=== PATIENT | female | born 1960 | race Caucasian/White ===

== ENCOUNTER → 2023-03-20 | Outpatient (CLI) | payer OTHER, MEDICARE | END | disposition home or self-care (01) | LOC: RAH 13:25 | PROVIDERS: ATTEND Family Medicine | DX: K44.9 Diaphragmatic hernia without obstruction or gangrene (principal); R91.8 Other nonspecific abnormal finding of lung field | CPT/HCPCS: 71250 ==

== ENCOUNTER 2024-08-08 18:25 | Inpatient (IN) | payer OTHER, MEDICAID ==
[~2024-08-08] VITALS: Ht 160 cm; Wt 84.9 kg
--- NOTE | 2024-08-08 18:50 | NUR ---
TOILETED FOR UA. STATES WAS UNABLE TO PRODUCE URINE.
[2024-08-08 19:09] LABS: BASOPHILS # (AUTO) 0.03 K/uL (0.00-0.20); BASOPHILS % (AUTO) 0.1 % (0.0-5.0); CREATININE 2.2 mg/dL (0.5-1.0); EOSINOPHILS # (AUTO) 0.01 K/uL (0.00-0.70); HEMATOCRIT 48.9 % (36-48); IMMATURE GRANULOCYTE ABSOLUTE 0.16 K/uL (0-1); LYMPHOCYTES # (AUTO) 1.1 K/uL (1.0-4.8); LYMPHOCYTES % (AUTO) 4.7 % (21.0-51.0); MEAN CORPUSCULAR HEMOGLOBIN 30.5 pg (27.0-33.0); MEAN CORPUSCULAR HGB CONC 33.5 g/dL (32.0-36.0); MEAN CORPUSCULAR VOLUME 90.9 fL (79-99); MONOCYTES # (AUTO) 1.8 K/uL (0.1-1.0); MONOCYTES % (AUTO) 7.9 % (3.0-13.0); NEUTROPHILS # (AUTO) 19.5 K/uL (1.8-7.7); NEUTROPHILS % (AUTO) 86.6 % (40.0-77.0); PLATELET COUNT (AUTO) 331 K/uL (130-400); POTASSIUM 3.4 mmol/L (3.5-5.1); RED BLOOD CELL COUNT(AUTO) 5.38 MIL/uL (4.00-5.50); WHITE BLOOD COUNT (AUTO) 22.6 K/uL (4.8-10.8)
[2024-08-08] MEDS: ZOSYN 3.375GM +NS 50ML IV ONE (19:33)
[2024-08-08 19:47] LABS: ALBUMIN 4.9 g/dL (3.5-5.0); BILIRUBIN,DIRECT 0.2 mg/dL (0.0-0.3); MAGNESIUM 2.2 mg/dL (1.80-2.40); TOTAL PROTEIN, SERUM 9.8 g/dL (6.0-8.3)
[2024-08-08] MEDS: 0.9%NACL 1000ML 1,000 ML IV ONE (19:51)
[2024-08-08] MEDS: ondanSETRON 4MG INJ IVP ONE (19:51)
[2024-08-08] MEDS ORDERED: ROSU10TA72 PO (19:57)
[2024-08-08] MEDS ORDERED: METO-391 PO (19:57)
[2024-08-08] MEDS ORDERED: ONDA-104 PO (19:57)
[2024-08-08 20:05] LABS: ABG BASE EXCESS 15.6 mmol/L (-2.0-3.0); ABG HCO3 40.3 mmol/L (21.0-28.0); ABG OXYGEN SATURATION 96.2 % (94.0-98.0); ABG PCO2 48 mmHg (32-45); ABG PH 7.546 (7.350-7.450); DEVICE COMMENT RR RN; PO2, ARTERIAL BG 73.9 mmHg (83.0-108.0); VENT MODE, BG NC (ROOM AIR)
[2024-08-08 20:12] LABS: SARS-CoV-2, RNA, NAAT NEGATIVE SARS CoV-2 (NEGATIVE)
[2024-08-08 20:18] LABS: INFLUENZA TYPE A Negative For Type A (NEGATIVE); INFLUENZA TYPE B Negative For Type B (NEGATIVE)
--- NOTE | 2024-08-08 20:49 | EKG ---
[facility] Test Date: 2024-08-08 Test Time: 20:20:06 Pat Name: RAN PALMA Department: ED Room: 232 Gender: F Concrete Pointer: [id number] : 1960 Requested By: LUNA MEDINA Order Number: [id number] Reading MD: Angel Rodrigues Measurements Intervals [place] Rate: 88 P: 80 [place]: 172 QRS: 28 QRSD: 101 T: 64 QT: 378 QTc: 458 Interpretive Statements Sinus rhythm Probable left atrial enlargement Probable anterolateral infarct, old No previous ECG available for comparison Electronically Signed On 08-12-2024 22:10:54 CDT by Angel Rodrigues Please click the below link to view image of tracing.
--- NOTE | 2024-08-08 21:07 | HMCIMG ---
CT ABDOMEN/PELVIS W/O CONTRAST HISTORY: Sepsis COMPARISON: None TECHNIQUE: Multiple sequential axial images of the abdomen and pelvis were obtained from the dome of the diaphragm through symphysis pubis. Patient was not given contrast through intravenous route. Oral contrast was not given. FINDINGS: No pleural effusion is seen bilaterally. There is no evidence of parenchymal disease or pulmonary nodule of the visualized lower lungs. Degenerative changes of the thoracolumbar spine are present. The heart is not enlarged. There is large hiatal hernia. There is gastric distention. Bilateral renal cortical scarring is seen. There is right renal cyst medially and anteriorly measuring 3 x 2.7 cm. There is small periumbilical hernia with fat content. Postcholecystectomy changes are seen. The liver, spleen, adrenal glands and pancreas are unremarkable. There is no evidence of hydronephrosis bilaterally. No evidence of renal stone is seen. Fecal material is seen in the colon. There are normal size retroperitoneal and mesenteric lymph nodes. No ascites is seen. Atherosclerotic changes are present. Appendix is not well-visualized limiting evaluation. Pelvic sidewalls are symmetric bilaterally. Bladder is moderately distended without wall thickening. IMPRESSION: 1. Large hiatal hernia. Gastric distention. CT was performed with one or more following dose reduction techniques: automated exposure control, adjustment of the mA and kv according to patient's size, or use of a iterative reconstruction technique.
--- NOTE | 2024-08-08 21:08 | ERN ---
General Chief Complaint: Nausea,Vomiting,Diarrhea Stated Complaint: NAUSEA/ VOMITING Time Seen by MD: 18:28 Time Seen by Midlevel: 18:28 Source: patient History of Present Illness Initial Comments Patient is a 64-year-old female with a past medical history of osteoarthritis, hypertension, and hyperlipidemia presenting to the emergency department for evaluation of nausea/vomiting/diarrhea that started two days ago. She called her primary care doctor today who recommended she report to the emergency department for further evaluation. She was also advised to start a bland diet and was given antiemetics with little to no relief. Allergies: Coded Allergies: No Known Drug Allergies (Unverified Allergy, Unknown, 08/08/24) Home Meds Reported Medications Rosuvastatin Calcium (Rosuvastatin Calcium) 10 Mg Tablet, 1 TAB PO HS for 30 Days, #30 TAB 0 Refills 08/08/24 Metoprolol Succinate (Metoprolol Succinate) 50 Mg Tab.er.24h, 1 TAB PO DAILY for 30 Days, #30 TAB 0 Refills 08/08/24 Ondansetron HCl (Ondansetron HCl) 4 Mg Tablet, 1 TAB PO Q6HPRN PRN for nausea/vomiting, #10 TAB 0 Refills 08/08/24 Past Medical History Past Medical History: Arthritis, High Cholesterol, Hypertension Past Surgical History: Cholecystectomy Surgical History Other: KIDNEY STONE ROS Dictation CONSTITUTIONAL: Negative except for HPI HEAD/FACE: Negative except for HPI EENT: Negative except for HPI RESPIRATORY: Negative except for HPI GASTROINTESTINAL/ABDOMINAL: Negative except for HPI GENITOURINARY: Negative except for HPI MUSCULOSKELETAL: Negative except for HPI INTEGUMENTARY: Negative except for HPI NEUROLOGICAL/PSYCH: Negative except for HPI HEMATOLOGIC/LYMPHATIC: Negative except for HPI All Systems Negative, Except as noted above. 13 point review of systems assessed and all negative except for above. Physical Exam Physical Exam Dictation Vital Signs reviewed General Appearance: Alert, oriented x 3, no acute distress, well developed, nourished. Head and Face: non-traumatic. Eyes: PERRL, pink conjunctivas, eyelid no trauma, anterior chamber with arcus senilis. Ears: Pinnas intact and no signs of trauma or erythema ear canals clear and no discharge TM no erythema Nose: No discharge, no bleeding. Oropharynx: Mouth normal, tongue pink, pharynx clear,no erythema, tonsils no exudates, no abscesses noted, mucous membrane moist Neck: Supple, non-tender, no thyromegaly, no masses, no JVD, no bruits Breast:Deferred Chest:No tenderness, no crepitus, no paradoxical movement, no retractions Lungs:Clear, well-ventilated, symmetric, no rales, no wheezing, no rhonchi, no stridor, good breath sounds bilaterally Heart: Tachycardic, regular rhythm, no murmur, no gallops Vascular: no peripheral edema, Abdomen: Soft, positive bowel sounds, nondistended, no guarding, nontender, no rebound, no masses no hepatomegaly, no splenomegaly, no Duggan's sign, no hernias. Rectal: Deferred Genital: Deferred Neurological: Normal speech, motor function intact, sensory function intact Musculoskeletal: Neck nontender, full range of motion, back nontender, full range of motion, Extremities: nontender, full range of motion Skin: Color pink, dry, no turgor, no rash, no lacerations, no abrasions, no contusions. Lymphatic: Deferred Results Laboratory and Microbiology Lab and Micro Result Laboratory Tests Test 08/08/24 18:55 08/08/24 19:20 08/08/24 19:48 08/08/24 20:03 White Blood Count 22.6 K/uL (4.8-10.8) H Red Blood Count 5.38 MIL/uL (4.00-5.50) Hemoglobin 16.4 g/dL (12.0-16.0) H Hematocrit 48.9 % (36-48) H Mean Corpuscular Volume 90.9 fL (79-99) Mean Corpuscular Hemoglobin 30.5 pg (27.0-33.0) Mean Corpuscular Hemoglobin Concent 33.5 g/dL (32.0-36.0) Red Cell Distribution Width 14.0 % (11.0-15.5) Platelet Count 331 K/uL (130-400) Mean Platelet Volume 9.8 fL (7.5-10.5) Immature Granulocyte % (Auto) 0.7 % (0-1) Neutrophils (%) (Auto) 86.6 % (40.0-77.0) H Lymphocytes (%) (Auto) 4.7 % (21.0-51.0) L Monocytes (%) (Auto) 7.9 % (3.0-13.0) Eosinophils (%) (Auto) 0.0 % (0.0-8.0) Basophils (%) (Auto) 0.1 % (0.0-5.0) Neutrophils # (Auto) 19.5 K/uL (1.8-7.7) H Lymphocytes # (Auto) 1.1 K/uL (1.0-4.8) Monocytes # (Auto) 1.8 K/uL (0.1-1.0) H Eosinophils # (Auto) 0.01 K/uL (0.00-0.70) Basophils # (Auto) 0.03 K/uL (0.00-0.20) Absolute Immature Granulocyte (auto 0.16 K/uL (0-1) Nucleated Red Blood Cells 0.0 % (0.0-0.19) White Cell Morphology Comment See comments Sodium Level 142 mmol/L (136-145) Potassium Level 3.4 mmol/L (3.5-5.1) L Chloride Level 88 mmol/L (101-111) *L Carbon Dioxide Level 43 mmol/L (21-32) *H Blood Urea Nitrogen 34 mg/dL (7-18) H Creatinine 2.2 mg/dL (0.5-1.0) H Glomerular Filtration Rate Calc 24 mL/min (>90) Random Glucose 178 mg/dL (70-105) H Total Calcium 10.2 mg/dL (8.5-10.1) H Magnesium Level 2.20 mg/dL (1.80-2.40) Total Bilirubin 1.0 mg/dL (0.2-1.0) Direct Bilirubin 0.2 mg/dL (0.0-0.3) Aspartate Amino Transf (AST/SGOT) 41 U/L (10-37) H Alanine Aminotransferase (ALT/SGPT) 32 U/L (12-78) Alkaline Phosphatase 117 U/L (50-136) Total Creatine Kinase 213 U/L (21-232) Troponin I High Sensitivity 1190 ng/L (4-50) *H Total Protein 9.8 g/dL (6.0-8.3) H Albumin 4.9 g/dL (3.5-5.0) Lipase 25 U/L (16-77) Lactic Acid Level 3.4 mmol/L (0.8-2.5) H Influenza Type A Antigen Negative For Type A Influenza Type B Antigen Negative For Type B SARS-CoV-2, RNA, NAAT NEGATIVE SARS CoV-2 Blood Gas Specimen Type Arterial Arterial Blood pH 7.546 (7.350-7.450) Arterial Blood Partial Pressure CO2 48 mmHg (32-45) H Arterial Blood Partial Pressure O2 73.9 mmHg (83.0-108.0) L Arterial Blood HCO3 40.3 mmol/L (21.0-28.0) H Arterial Blood Oxygen Saturation 96.2 % (94.0-98.0) Arterial Blood Base Excess 15.6 mmol/L (-2.0-3.0) H Blood Gas Temperature 37.0 CELSIUS (35.5-37.0) Blood Gas Flow-by 2.00 L/min (0.00-15.00) Blood Gas Vent Mode NC (ROOM AIR) FiO2 28.0 % Blood Gas Specimen Comment RR RN Test 08/08/24 20:57 Troponin I High Sensitivity 967 ng/L (4-50) *H Labs Reviewed?: Yes MDM MDM: Patient is a 64-year-old female with a past medical history of osteoa rthritis, hypertension, and hyperlipidemia presenting to the emergency department for evaluation of nausea/vomiting/diarrhea that started two days ago. She called her primary care doctor today who recommended she report to the emergency department for further evaluation. She was also advised to start a bland diet and was given antiemetics with little to no relief. On arrival the patient was found to be hypoxic with an O2 saturation in the upper 80s. Patient was put on 2 L of oxygen. Initial vital signs are remarkable for a temperature of 100.0. She is tachycardic with a heart rate of 115 beats per minute. On physical examination patient has some mild wheezing to bilateral lung andre with a productive cough. Abdominal examination is benign. Septic workup was initiated. CBC shows leukocytosis with a white blood cell count of 22.6. There is left shift. Chemistries reveal hypochloremia with a an acute kidney injury. Lactic acid is elevated at 3.4. Initial troponin was elevated at 1190. EKG shows no ST elevations or bundle branch blocks. Repeat troponin trending downward at 967. The patient does not have any active chest pain so we did not start heparin. Patient was started on broad-spectrum antibiotics and will be admitted for further observation and management. Case was discussed with the hospitalist on-call who agrees to admit. Differential diagnosis: Sepsis, dehydration, urinary tract infection, pyelonephritis, gastroenteritis Rationale: Tests considered and ordered secondary to shared decision making include: Previous outside records reviewed: Old ER visits. Risk of complication and/or morbidity or mortality of patient management: None Medications-Per medication reconciliation Need for hospitalization: Patient does meet criteria for hospitalization. Need for emergency major/minor surgery: No There are no social concerns with this patient. Prescription drug management Prescriptions will include symptomatic care Patient's prior external medical records from other ER visits were reviewed by me as indicated. Prior testing and results from previous visits were reviewed. Prior tests were taken into account with medical decision making and resource utilization, independent historian/historians were used to obtain complete medical history. I independently interpreted the test that were performed, results were reviewed by me and considered findings on radiology if ordered. Medical management and examination interpretation discussions were had by me with other qualified healthcare professionals as indicated for the patient's care. ED Course Orders Procedure Category Date Status Time Cbc With Differential LAB 08/08/24 Complete 18:33 Basic Metabolic Panel LAB 08/08/24 Complete 18:33 Hepatic Function Panel LAB 08/08/24 Complete 19:02 Lipase LAB 08/08/24 Complete 19:02 Magnesium LAB 08/08/24 Complete 19:02 Troponin I High LAB 08/08/24 Complete Sensitivity 19:02 Urinalysis Profile LAB 08/08/24 Complete 19:02 Chest 1vw RAD 08/08/24 Resulted 19:02 Creatine Kinase, Total LAB 08/08/24 Complete 19:02 Blood Cult JUDI 08/08/24 In Process 19:02 Zosyn 3.375gm+Ns 50ml PHA 08/08/24 Complete (Zosyn 3.375gm+Ns 19:30 Lactic Acid (Removed) LAB 08/08/24 Complete 19:30 Arterial Blood Gas RT 08/08/24 Transmitted 19:41 Ct Abdomen/Pelvis W/O CT 08/08/24 Resulted Contrast 19:41 Influenza Type A & B, LAB 08/08/24 Complete Rapid 19:44 Covid Rna Naat LAB 08/08/24 Complete 19:44 0.9%Nacl 1000ml (Ns PHA 08/08/24 Complete 1000ml) 20:00 Ondansetron 4mg Inj PHA 5/29/25 Complete (Zofran 4mg Inj) 20:00 12 Lead Ekg Tracing- EKG 08/08/24 Complete Technical 20:03 Arterial Blood Gas LAB 08/08/24 Complete 20:03 Troponin I High LAB 08/08/24 Complete Sensitivity 20:47 Ipratropium/Albuterol PHA 08/08/24 Complete Neb (Duoneb) 21:30 Methylprednisolone PHA 08/08/24 Complete Succ 125mg (Solu-Medr 21:30 Current Medications Medications (Trade) Dose Ordered Sig/Jie Route PRN Reason Start Time Stop Time Status Last Admin Dose Admin Albuterol (DUOneb) 1 UDVIAL ONCE ONCE IH 08/08/24 21:30 08/08/24 21:31 DC 08/08/24 21:37 Methylprednisolone Sodium Succinate (Solu-medROL 125MG) 125 mg ONCE ONCE IVP 08/08/24 21:30 08/08/24 21:31 DC 08/08/24 21:22 Ondansetron HCl (zoFRAN 4MG INJ) 4 mg ONCE ONCE IVP 08/08/24 20:00 08/08/24 20:01 DC 08/08/24 19:51 Piperacillin Sod/ Tazobactam Sod (Zosyn 3.375gm+NS 50ml) 3.375 gm ONCE ONCE IV 08/08/24 19:30 08/08/24 19:31 DC 08/08/24 19:33 Sodium Chloride 1,000 ml @ 0 mls/hr ONCE ONCE IV 08/08/24 20:00 08/08/24 20:01 DC 08/08/24 19:51 Vital Signs Date Time Temp Pulse Resp B/P (MAP) Pulse Ox O2 Delivery O2 Flow Rate FiO2 08/08/24 21:37 88 20 08/08/24 19:15 98.4 105 18 121/65 94 Nasal Cannula* 2 08/08/24 18:52 98.4 114 18 117/78 95 Nasal Cannula* 2 08/08/24 18:28 100.0 115 20 118/78 92 Room Air 0 DX & DISP Disposition: Inpatient Decision to Admit Date: August 08, 2024 Departure Impression: Primary Impression: Sepsis Additional Impressions: DONELL (acute kidney injury), Elevated troponin, Dehydration, Leukocytosis Critical Time: 30 minutes (Total critical care time: Approximately 45 minutesDue to a high probability of clinically significant, life threatening deterioration, the patient required my highest level of preparedness to intervene emergently and I personally spent this critical care time directly and personally managing the patient. This critical care time included obtaining a history; examining the patient; pulse oximetry; ordering and review of studies; arranging urgent treatment with development of a management plan; evaluation of patient's response to treatment; frequent reassessment; and, discussions with other providers.This critical care time was performed to assess and manage the high probability of imminent, life-threatening deterioration that could result in multi-organ failure. It was exclusive of separately billable procedures and treating other patients and teaching time.Please see MDM section and the rest of the note for further information on patient assessment and treatment.) Condition: Stable Referrals: AMBROCIO MARTINEZ MD (PCP) Time of Disposition: 20:59 I have reviewed the case, and I agree with, Diagnosis and Plan I performed the substantive portion of the visit. I have reviewed and personally made and approve the management plan that is documented in the note by myself or the DA. I acknowledge for responsibility for the patient's management plan. LUNA MEDINA August 08, 2024 21:08 SYED BLAKE DO August 09, 2024 02:35
--- NOTE | 2024-08-08 21:11 | HMCIMG ---
CHEST 1VW HISTORY: Shortness of breath COMPARISON: None FINDINGS: A frontal projection of the chest was obtained. Large hiatal hernia is seen. No acute pulmonary infiltrates is seen. The heart is borderline enlarged. Degenerative changes are seen. Mild aortic calcifications are seen. IMPRESSION: 1. No acute pulmonary infiltrate is seen. Large hiatal hernia.
[2024-08-08] MEDS: Solu-medROL 125MG VIAL IVP ONE (21:22)
[2024-08-08 21:37] VITALS: PULSE 88; RESP 20
[2024-08-08] MEDS: IpraTROPium/alBUTERol SULFATE 3 ML SOLUTION IH ONE (21:37)
--- NOTE | 2024-08-08 22:59 | HP ---
[facility] Date of Service: August 08, 2024 Time of Service: 22:36 PCP: Renan Pierson HISTORY OF PRESENT ILLNESS: This is a 64-year-old female past medical history of osteoarthritis, hypertension and hyperlipidemia who presented to the ED for complaints of nausea, vomiting and diarrhea which started two days ago.Patient states she had a hamburger,[place] fries and ice cream from [employer] Monday night and few hours after she started having nausea and vomiting every 2 hrs and 2 episode of diarrhea every day.Patient states she is unable to keep anything down and her diarrhea stopped yesterday however her nausea and vomiting continues and she is vomiting dark colored bile she said.Patient states she had similar problem a year ago she said. Upon arrival to ER vital signs temperature a 100, pulse 115, blood pressure 118/78 saturation 92% room air Seen and examined patient in the ED awake,alert and coherent.Patient continue to be vomiting.Patient denies fever, chills, abdominal pain, chest pain, pa lpitation, cough and shortness of breaths. Latest Vital signs : Temperature 98.4, heart rate 105, blood pressure 121/65 saturation 94% on 2 L nasal cannula. Labs WBC 22.6 with negative left shift of neutrophils 86, hemoglobin 16, hematocrit 48.9 platelet count 331. Sodium 142, potassium 3.4, chloride 88, CO2 43, BUN 34, creatinine 2.2 GFR 24 glucose 178, lactic acid 3.4 Calcium 10 lactic acid 3.4, AST 41. Troponin 1190 to 967. Total protein 9.8. Influenza type a and B negative SARs COVID negative. Chest x-ray result revealed no acute pulmonary infiltrate is seen. Large hiatal hernia. CT abdomen and pelvis without contrast result revealed large hiatal hernia. Gastric distention. While in the ER patient received Solu-Medrol 125 mg IV, albuterol, Zofran 4 mg IV 1 L NS bolus, Zosyn IV. We will admit patient for further medical management. REVIEW OF SYSTEMS CONSTITUTIONAL: Denies fevers, chills, or night sweats. No unintentional weight loss reported. NEUROLOGICAL: Denies headache, amaurosis fugax, motor weakness, sensory deficit, vertigo/spinning sensation, gait abnormalities, or tremors. ENT: No hearing loss, otalgia, otorrhea, rhinitis, rhinorrhea, hoarseness, or sore throat. CARDIOVASCULAR: Denies any exertional angina, dyspnea on exertion, orthopnea, paroxysmal nocturnal dyspnea, palpitations, life-threatening arrhythmias, claudication. PULMONARY: Denies any shortness of breath, cough, phlegm/sputum, hemoptysis, pleuritic chest pain. SLEEP: Denies morning headaches, daytime somnolence or napping. Denies difficulty falling asleep, staying asleep, waking from sleep. Denies knowledge of snoring. GASTROINTESTINAL: Patient complains of ongoing nausea and vomiting Denies any type of dysphagia to either liquids or solids. Denies nausea, vomiting, pyrosis, early satiety, abdominal pain, diarrhea, constipation, or changes in stool consistency or caliber. Denies coffee-ground emesis, hematemesis, hematochezia, or melanotic stools. GENITOURINARY: Denies frequency, urgency, nocturia, hematuria or incontinence (Storage/Irritative symptoms.) Low urinary stream, straining to void, urinary intermittency or hesitancy, splitting of the voiding stream, terminal dribbling. ENDOCRINOLOGIC: Denies polyuria, polydipsia, polyphagia or heat/cold intolerances. HEMATOLOGIC: Denies thrombophilia/previous clots, or coagulopathy/bleeding disorders. ONCOLOGIC: Denies personal history of malignancy. DERMATOLOGIC: Denies rashes or pruritus. PSYCHIATRIC: Denies any suicidal or homicidal ideation. Denies hallucinations. PAST MEDICAL HISTORY: [ Hypertension, osteoarthritis and hyperlipidemia ] PAST SURGICAL HISTORY: [ Kidney stone removal, cholecystectomy ] PAST SOCIAL HISTORY: [Patient lives alone. Patient denies alcohol tobacco and recreational drug use ] FAMILY HISTORY: [ Noncontributory ] Coded Allergies: No Known Drug Allergies (Unverified Allergy, Unknown, 08/08/24) PHYSICAL EXAM GENERAL APPEARANCE: The patient is awake, alert, and oriented, in no acute cardiopulmonary distress. NEUROLOGICAL: Cranial nerves II-XII grossly intact. Motor is 5/5 in bilateral upper and lower extremities proximal to distal. No sensory deficits. HEENT: Face is symmetric. Pupils are equal and reactive. Extraocular movements are intact. NECK: Supple. No JVD. No thyromegaly. No submental, submandibular, pre- /postauricular, occipital or supraclavicular lymphadenopathy. CHEST: Normal chest expansion. No Telemetry. LUNGS: Absence of any rales, rhonchi or any wheezing. CARDIOVASCULAR: Regular. S1 and S2 normal. No appreciable rubs, murmurs or gallops. ABDOMEN: Soft, nontender, and nondistended. There is no rebound, voluntary guarding, or rigidity. : Deferred. No Zuluaga. EXTREMITIES: Non-edematous and not cyanotic. No clubbing. Good capillary refill. SKIN: No skin breakdown. Vital Sign (Last 24 Hours) 08/08/24 08/08/24 19:15 21:37 Temp 98.4 Pulse 88 Resp 20 B/P (MAP) 121/65 Pulse Ox 94 O2 Delivery Nasal Cannula* O2 Flow Rate 2 FiO2 28 LABS: Laboratory: Test 08/08/24 20:57 08/08/24 20:03 08/08/24 19:48 08/08/24 19:20 Range/Units Troponin I High Sensitivity 967 *H 4-50 ng/L Blood Gas Specimen Type Arterial Arterial Blood pH 7.546 H 7.350-7.450 Arterial Blood Partial Pressure CO2 48 H 32-45 mmHg Arterial Blood Partial Pressure O2 73.9 L 83.0-108.0 mmHg Arterial Blood HCO3 40.3 H 21.0-28.0 mmol/L Arterial Blood Oxygen Saturation 96.2 94.0-98.0 % Arterial Blood Base Excess 15.6 H -2.0-3.0 mmol/L Blood Gas Temperature 37.0 35.5-37.0 CELSIUS Blood Gas Flow-by 2.00 0.00-15.00 L/min Blood Gas Vent Mode NC ROOM AIR FiO2 28.0 % Blood Gas Specimen Comment RR RN Influenza Type A Antigen Negative For Type A NEGATIVE Influenza Type B Antigen Negative For Type B NEGATIVE SARS-CoV-2, RNA, NAAT NEGATIVE SARS CoV-2 NEGATIVE Lactic Acid Level 3.4 H 0.8-2.5 mmol/L Test 08/08/24 18:55 Range/Units White Blood Count 22.6 H 4.8-10.8 K/uL Red Blood Count 5.38 4.00-5.50 MIL/uL Hemoglobin 16.4 H 12.0-16.0 g/dL Hematocrit 48.9 H 36-48 % Mean Corpuscular Volume 90.9 79-99 fL Mean Corpuscular Hemoglobin 30.5 27.0-33.0 pg Mean Corpuscular Hemoglobin Concent 33.5 32.0-36.0 g/dL Red Cell Distribution Width 14.0 11.0-15.5 % Platelet Count 331 130-400 K/uL Mean Platelet Volume 9.8 7.5-10.5 fL Immature Granulocyte % (Auto) 0.7 0-1 % Neutrophils (%) (Auto) 86.6 H 40.0-77.0 % Lymphocytes (%) (Auto) 4.7 L 21.0-51.0 % Monocytes (%) (Auto) 7.9 3.0-13.0 % Eosinophils (%) (Auto) 0.0 0.0-8.0 % Basophils (%) (Auto) 0.1 0.0-5.0 % Neutrophils # (Auto) 19.5 H 1.8-7.7 K/uL Lymphocytes # (Auto) 1.1 1.0-4.8 K/uL Monocytes # (Auto) 1.8 H 0.1-1.0 K/uL Eosinophils # (Auto) 0.01 0.00-0.70 K/uL Basophils # (Auto) 0.03 0.00-0.20 K/uL Absolute Immature Granulocyte (auto 0.16 0-1 K/uL Nucleated Red Blood Cells 0.0 0.0-0.19 % White Cell Morphology Comment See comments Sodium Level 142 136-145 mmol/L Potassium Level 3.4 L 3.5-5.1 mmol/L Chloride Level 88 *L 101-111 mmol/L Carbon Dioxide Level 43 *H 21-32 mmol/L Blood Urea Nitrogen 34 H 7-18 mg/dL Creatinine 2.2 H 0.5-1.0 mg/dL Glomerular Filtration Rate Calc 24 >90 mL/min Random Glucose 178 H 70-105 mg/dL Total Calcium 10.2 H 8.5-10.1 mg/dL Magnesium Level 2.20 1.80-2.40 mg/dL Total Bilirubin 1.0 0.2-1.0 mg/dL Direct Bilirubin 0.2 0.0-0.3 mg/dL Aspartate Amino Transf (AST/SGOT) 41 H 10-37 U/L Alanine Aminotransferase (ALT/SGPT) 32 12-78 U/L Alkaline Phosphatase 117 50-136 U/L Total Creatine Kinase 213 21-232 U/L Total Protein 9.8 H 6.0-8.3 g/dL Albumin 4.9 3.5-5.0 g/dL Lipase 25 16-77 U/L DIAGNOSTICS / RADIOLOGY: [ ] ASSESSMENT: Intractable nausea and vomiting POA Severe dehydration POA Acute kidney injury Elevated troponin R/O NSTEMI POA Uncontrolled diabetes POA Metabolic alkalosis POA Hypokalemia POA Sepsis due to UTI POA Acute urinary tract infection POA Large hiatal per CT POA PLAN: We will admit patient in PCCU We will keep patient nothing by mouth We will start NS @ 150 ml / hr x2 bags and re evaluate We will continue on Zosyn IV for empiric coverage We will start on Protonix 40 mg IV daily for GI prophylaxis We will start on Lovenox 80 mg subQ now and evaluate per catherine BLACK We will start Aspirin 81 mg po daily Phenergan 12.5 mg IM x1 dose now We will replace electrolytes as needed per protocol We will start on insulin sliding scale AC & HS with hypoglycemia protocol We will add prn medication for fever,pain,cough , nausea and vomiting We will reconcile home meds once medlist available We will request for urine toxicology We will trend troponin Q6x3 Will request ECG at 0600 am Will obtain echocardiogram Will seek infectious disease consultation Will seek cardiology consultation We will request labs in am Further orders to follow depending on above results Case discussed with attending physician and came up with above treatment and plan of care. ADVANCED CARE PLANNING 1. Which of the following were discussed? Hospice Care - No Therapeutic options - Yes Advance Directives - No Other discussions - 2. Discussed with who? Patient 3. Voluntary nature of this service was explained to the patient? Yes 4. Amount of time spent - __25 5. Reviewed by Physician? (if this service was performed by NPP) Yes ADDENDUM: Incomplete workup on admission the patient has an obvious bowel obstruction with duodenum being compressed at a hiatal hernia causing a gastric outlet obstruction - insert NG tube for decompression - discontinue ID consult as this is not infectious in nature - consult General surgery to evaluate hiatal hernia and resulting obstruction - troponins are up trending, we will follow up with Cardiology ATTENDING PHYSICIAN ATTESTATION: I have reviewed the midlevel's plan. I have independently seen, reviewed the chart and made my own assessment of the patient. See my addendum for updates to the midlevel's medical plan MD FRANKIE Ann ROSEMARIE P [facility] August 08, 2024 22:59 CAROL ANN BOWEN MD August 09, 2024 12:29
[2024-08-08] MEDS ORDERED: ondanSETRON 4MG INJ IV PRN (23:00)
[2024-08-08] MEDS: 0.9%NACL 1000ML 1,000 ML IV SCH (23:15)
[2024-08-08] MEDS: PROMETHAZINE HCL 25 MG/ML 1ML AMPULE IM ONE (23:18)
[2024-08-09] VITALS (15 sets, daily range): BP systolic 143–180; BP diastolic 45–98; PULSE 56–114; RESP 18–19; TEMP 98–99; O2SAT 93–96
[2024-08-09] MEDS: ENOXAPARIN SODIUM 80 MG/0.8 ML SQ ONE (00:02)
[2024-08-09] MEDS: IpraTROPium/alBUTERol SULFATE 3 ML SOLUTION IH SCH (01:48)
[2024-08-09 02:16] LABS: APPEARANCE,URINE CLOUDY (CLEAR); BILIRUBIN,URINE NEGATIVE (NEGATIVE); COLOR,URINE YELLOW (YELLOW); GLUCOSE, URINE (UA) NEGATIVE (NEGATIVE); KETONES,URINE 40 mg/dL (NEGATIVE); LEUKOCYTE ESTERASE ,URINE 250 Leu/uL (NEGATIVE); NITRATE,URINE NEGATIVE (NEGATIVE); OCCULT BLOOD,URINE MODERATE (NEGATIVE); PROTEIN,URINE 100 mg/dL (NEGATIVE); UROBILINOGEN,URINE 0.2 mg/dL (0.2-1.0)
[2024-08-09 02:20] LABS: ADD UA MICROSCOPIC YES
[2024-08-09 02:22] LABS: BACTERIA,URINE RARE /HPF (None Seen); MUCUS,URINE RARE LPF (None Seen); SQUAMOUS EPITHELIAL CELL,UR FEW /HPF (0-2); WBC,URINE 51-100 /HPF (0-1)
[2024-08-09 02:23] LABS: AMPHET/METH SCREEN,URINE NEGATIVE (NEGATIVE); BARBITURATE SCREEN, URINE NEGATIVE (NEGATIVE); BENZODIAZEPINES SCREEN,URINE NEGATIVE (NEGATIVE); CANNABINOID SCREEN,URINE NEGATIVE (NEGATIVE); COCAINE SCREEN,URINE NEGATIVE (NEGATIVE); OPIATE SCREEN,URINE NEGATIVE (NEGATIVE); PHENCYCLIDINE SCREEN,URINE NEGATIVE (NEGATIVE)
[2024-08-09] MEDS: ZOSYN 3.375GM+NS 50ML 50 ML IV SCH (03:53)
--- NOTE | 2024-08-09 05:28 | EKG ---
[facility] Test Date: 2024-08-09 Test Time: 05:28:07 Pat Name: RAN PALMA Department: [facility] Room: 232 1 Gender: F Mink Rancher: [id number] : 1960 Requested By: DALJIT DAVID Order Number: [id number] Reading MD: Angel Rodrigues Measurements Intervals Clements Rate: 98 P: 75 MI: 164 QRS: 34 QRSD: 84 T: 96 QT: 394 QTc: 503 Interpretive Statements Sinus rhythm with premature atrial complexes Inferior infarct , possibly acute ACUTE DE / STEMI Consider right ventricular involvement in acute inferior infarct Compared to ECG 08/08/2024 20:20:06 Atrial premature complex(es) now present Myocardial infarct finding still present Electronically Signed On 08-12-2024 22:11:12 CDT by Angel Rodrigues Please click the below link to view image of tracing.
[2024-08-09 06:08] LABS: BASOPHILS # (AUTO) 0.02 K/uL (0.00-0.20); BASOPHILS % (AUTO) 0.1 % (0.0-5.0); HEMATOCRIT 45.9 % (36-48); IMMATURE GRANULOCYTE ABSOLUTE 0.11 K/uL (0-1); LYMPHOCYTES # (AUTO) 0.8 K/uL (1.0-4.8); LYMPHOCYTES % (AUTO) 3.7 % (21.0-51.0); MEAN CORPUSCULAR HEMOGLOBIN 29.9 pg (27.0-33.0); MEAN CORPUSCULAR HGB CONC 33.1 g/dL (32.0-36.0); MEAN CORPUSCULAR VOLUME 90.2 fL (79-99); MONOCYTES # (AUTO) 0.8 K/uL (0.1-1.0); MONOCYTES % (AUTO) 3.5 % (3.0-13.0); NEUTROPHILS # (AUTO) 19.7 K/uL (1.8-7.7); NEUTROPHILS % (AUTO) 92.2 % (40.0-77.0); PLATELET COUNT (AUTO) 271 K/uL (130-400); RED BLOOD CELL COUNT(AUTO) 5.09 MIL/uL (4.00-5.50); WHITE BLOOD COUNT (AUTO) 21.4 K/uL (4.8-10.8)
[2024-08-09 06:36] LABS: HEMOGLOBIN A1C 5.6 % (4.0-6.0)
[2024-08-09 06:43] LABS: ALBUMIN 3.9 g/dL (3.5-5.0); BILIRUBIN,TOTAL 0.9 mg/dL (0.2-1.0); CREATININE 1.3 mg/dL (0.5-1.0); MAGNESIUM 2.1 mg/dL (1.80-2.40); THYROID STIMULATING HORMONE 0.31 uIU/mL (0.36-3.74); TOTAL PROTEIN, SERUM 8.4 g/dL (6.0-8.3)
[2024-08-09 06:44] LABS: POTASSIUM 2.6 mmol/L (3.5-5.1)
[2024-08-09] MEDS ORDERED: IpraTROPium/alBUTERol SULFATE 3 ML SOLUTION IH PRN (07:00)
[2024-08-09 07:32] LABS: ERYTHROCYTE SEDIMENTATION RATE 13 MM/HR (0-30)
[2024-08-09] MEDS: PoTASSium chloRIDE 10MEQ/100ML 100 ML IV PRN (07:50)
[2024-08-09] MEDS: ASPIRIN 81 MG EC TAB PO SCH (09:00)
[2024-08-09] MEDS ORDERED: ENOXAPARIN SODIUM 30 MG/0.3 ML SQ SCH (09:00)
--- NOTE | 2024-08-09 09:16 | NUR ---
DCP: HOME Pt currently lives alone in her apartment. Pt denies any insecurities with food, assisted, and/or utilities. Pt does not have DME, home health, or provider services. Pt is able to complete ADLs independently. PCP is Dr. Renan Pierson and uses [facility] ([facility]) for any RX needs. At [place] pt will go home and family and friends can assist with transportation. Addendum: 08/09/24 at 0919 by AGUSTIN ESCAMILLA SS Amended: Links added.
[2024-08-09] MEDS: PoTASSium chloRIDE 20MEQ/100ML 100 ML IV PRN (09:26)
[2024-08-09] MEDS: PANTOPrazole 40 MG/VIAL IVP SCH (09:26)
[2024-08-09] MEDS ORDERED: AEC81 PO (11:46)
--- NOTE | 2024-08-09 12:37 | PN ---
[facility] PROGRESS NOTE Date of Service: August 09, 2024 Time of Service: 12:31 SUBJECTIVE: 08/08 patient seen at bedside, no acute events overnight. She continues with nausea, imaging reviewed once again showing a large distended stomach full of fluid and a recognizable hiatal hernia. The pylorus and 1st part of the duodenum are in the thoracic cavity and the duodenum passes through the hiatal hernia into the abdominal cavity. This narrowing along with they distended stomach seems to be causing a gastric outlet obstruction, NG tube will be inserted and patient will be decompressed. General surgery will be consulted for further recommendations. Patient has slow up trend of troponins, she is NPO and can not take normal ACS medications, we will give a rectal suppository of aspirin. Further recommendations per Cardiology REVIEW OF SYSTEMS 12 point ROS negative unless noted in HPI PHYSICAL EXAM GENERAL APPEARANCE: The patient is awake, alert, and oriented, in no acute cardiopulmonary distress. NEUROLOGICAL: Cranial nerves II-XII grossly intact. Motor is 5/5 in bilateral upper and lower extremities proximal to distal. No sensory deficits. HEENT: Face is symmetric. Pupils are equal and reactive. Extraocular movements are intact. NECK: Supple. No JVD. No thyromegaly. No submental, submandibular, pre- /postauricular, occipital or supraclavicular lymphadenopathy. CHEST: Normal chest expansion. No Telemetry. LUNGS: Absence of any rales, rhonchi or any wheezing. CARDIOVASCULAR: Regular. S1 and S2 normal. No appreciable rubs, murmurs or gallops. ABDOMEN: Soft, nontender, and nondistended. There is no rebound, voluntary guarding, or rigidity. : Deferred. No Zuulaga. EXTREMITIES: Non-edematous and not cyanotic. No clubbing. Good capillary refill. SKIN: No skin breakdown. Vital Signs (last 8hr) Date Time Temp Pulse Resp B/P (MAP) Pulse Ox O2 Delivery O2 Flow Rate FiO2 08/09/24 12:00 98.6 56 18 143/45 90 Room Air 08/09/24 11:43 18 N/Cannula Low lpm 2.0 28 08/09/24 07:56 98.8 103 18 148/85 93 Room Air 08/09/24 06:40 96 19 08/09/24 06:39 19 N/Cannula Low lpm 2.0 28 LABS: Laboratory: Test 08/09/24 09:36 08/09/24 05:44 08/09/24 01:50 08/08/24 20:03 Range/Units Lactic Acid Level 1.5 0.8-2.5 mmol/L Troponin I High Sensitivity 1372 *H 4-50 ng/L White Blood Count 21.4 H 4.8-10.8 K/uL Red Blood Count 5.09 4.00-5.50 MIL/uL Hemoglobin 15.2 12.0-16.0 g/dL Hematocrit 45.9 36-48 % Mean Corpuscular Volume 90.2 79-99 fL Mean Corpuscular Hemoglobin 29.9 27.0-33.0 pg Mean Corpuscular Hemoglobin Concent 33.1 32.0-36.0 g/dL Red Cell Distribution Width 14.0 11.0-15.5 % Platelet Count 271 130-400 K/uL Mean Platelet Volume 9.6 7.5-10.5 fL Immature Granulocyte % (Auto) 0.5 0-1 % Neutrophils (%) (Auto) 92.2 H 40.0-77.0 % Lymphocytes (%) (Auto) 3.7 L 21.0-51.0 % Monocytes (%) (Auto) 3.5 3.0-13.0 % Eosinophils (%) (Auto) 0.0 0.0-8.0 % Basophils (%) (Auto) 0.1 0.0-5.0 % Neutrophils # (Auto) 19.7 H 1.8-7.7 K/uL Lymphocytes # (Auto) 0.8 L 1.0-4.8 K/uL Monocytes # (Auto) 0.8 0.1-1.0 K/uL Eosinophils # (Auto) 0.00 0.00-0.70 K/uL Basophils # (Auto) 0.02 0.00-0.20 K/uL Absolute Immature Granulocyte (auto 0.11 0-1 K/uL Nucleated Red Blood Cells 0.0 0.0-0.19 % Erythrocyte Sedimentation Rate 13 0-30 MM/HR Sodium Level 143 136-145 mmol/L Potassium Level 2.6 *L 3.5-5.1 mmol/L Chloride Level 93 L 101-111 mmol/L Carbon Dioxide Level 39 H 21-32 mmol/L Blood Urea Nitrogen 31 H 7-18 mg/dL Creatinine 1.3 H 0.5-1.0 mg/dL Glomerular Filtration Rate Calc 45 >90 mL/min Random Glucose 165 H 70-105 mg/dL Hemoglobin A1c 5.6 4.0-6.0 % Estimated Average Glucose (eAG) 114 70-126 mg/dL Total Calcium 8.7 8.5-10.1 mg/dL Magnesium Level 2.10 1.80-2.40 mg/dL Total Bilirubin 0.9 0.2-1.0 mg/dL Aspartate Amino Transf (AST/SGOT) 42 H 10-37 U/L Alanine Aminotransferase (ALT/SGPT) 28 12-78 U/L Alkaline Phosphatase 97 50-136 U/L Total Protein 8.4 H 6.0-8.3 g/dL Albumin 3.9 # 3.5-5.0 g/dL Procalcitonin 0.07 0.05-0.5 ng/mL Thyroid Stimulating Hormone (TSH) 0.31 L 0.36-3.74 uIU/mL Urine Color YELLOW YELLOW Urine Appearance CLOUDY H CLEAR Urine pH 7.0 5.0-8.0 Urine Specific [place] 1.023 1.001-1.031 Urine Protein 100 H NEGATIVE mg/dL Urine Glucose (UA) NEGATIVE NEGATIVE mg/dL Urine Ketones 40 H NEGATIVE mg/dL Urine Occult Blood MODERATE H NEGATIVE Urine Nitrate NEGATIVE NEGATIVE Urine Bilirubin NEGATIVE NEGATIVE mg/dL Urine Urobilinogen 0.2 0.2-1.0 mg/dL Urine Leukocyte Esterase 250 H NEGATIVE Candis/uL Urine RBC 2-5 H 0-1 /HPF Urine WBC 51-100 H 0-1 /HPF Urine Squamous Epithelial Cells FEW 0-2 /HPF Urine Bacteria RARE None Seen /HPF Urine Hyaline Casts 2-5 H 0-1 /LPF /LPF Urine Opiates Screen NEGATIVE NEGATIVE Urine Barbiturates Screen NEGATIVE NEGATIVE Urine Phencyclidine Screen NEGATIVE NEGATIVE Urine Amphetamines Screen NEGATIVE NEGATIVE Urine Benzodiazepines Screen NEGATIVE NEGATIVE Urine Cocaine Screen NEGATIVE NEGATIVE Urine Marijuana (THC) Screen NEGATIVE NEGATIVE Blood Gas Specimen Type Arterial Arterial Blood pH 7.546 H 7.350-7.450 Arterial Blood Partial Pressure CO2 48 H 32-45 mmHg Arterial Blood Partial Pressure O2 73.9 L 83.0-108.0 mmHg Arterial Blood HCO3 40.3 H 21.0-28.0 mmol/L Arterial Blood Oxygen Saturation 96.2 94.0-98.0 % Arterial Blood Base Excess 15.6 H -2.0-3.0 mmol/L Blood Gas Temperature 37.0 35.5-37.0 CELSIUS Blood Gas Flow-by 2.00 0.00-15.00 L/min Blood Gas Vent Mode NC ROOM AIR FiO2 28.0 % Blood Gas Specimen Comment RR RN Test 08/08/24 19:48 08/08/24 18:55 Range/Units Influenza Type A Antigen Negative For Type A NEGATIVE Influenza Type B Antigen Negative For Type B NEGATIVE SARS-CoV-2, RNA, NAAT NEGATIVE SARS CoV-2 NEGATIVE White Cell Morphology Comment See comments Direct Bilirubin 0.2 0.0-0.3 mg/dL Total Creatine Kinase 213 21-232 U/L Lipase 25 16-77 U/L Current Medications Medications (Trade) Dose Ordered Sig/Jie Route PRN Reason Start Time Stop Time Status Last Admin Dose Admin Albuterol (DUOneb) 1 udvial [id number] IH 08/09/24 02:00 08/09/24 06:43 DC 08/09/24 06:37 1 UDVIAL Albuterol (DUOneb) 1 udvial [id number] PRN IH SHORTNESS OF BREATH 08/09/24 07:00 09/08/24 01:59 Aspirin (Aspirin 81mg Ec Tab) 81 mg DAILY PO 08/09/24 09:00 09/08/24 08:59 Enoxaparin Sodium (Lovenox) 30 mg DAILY SQ 08/09/24 09:00 08/08/24 23:29 DC Magnesium Sulfate 50 ml @ 0 mls/hr PROTOCOL PRN IV OTHER [SEE ORDER COMMENTS] 08/08/24 23:00 09/07/24 22:59 Ondansetron HCl (zoFRAN 4MG INJ) 4 mg Q6H PRN IV NAUSEA/VOMITING 08/08/24 23:00 09/07/24 22:59 Pantoprazole Sodium (PROTonix 40MG INJ) 40 mg DAILY IVP 08/09/24 09:00 09/08/24 08:59 08/09/24 09:26 40 MG Piperacillin Sod/ Tazobactam Sod 50 ml @ 12.5 mls/hr Q8H IV 08/09/24 03:00 08/19/24 02:59 08/09/24 12:27 12.5 MLS/HR Potassium Chloride 100 ml @ 50 mls/hr AD PRN IV POTASSIUM PROTOCOL 08/08/24 23:00 09/07/24 22:59 08/09/24 09:26 50 MLS/HR Potassium Chloride 100 ml @ 100 mls/hr AD PRN IV POTASSIUM PROTOCOL 08/09/24 07:00 09/08/24 06:59 08/09/24 07:50 100 MLS/HR Sodium Chloride 1,000 ml @ 150 mls/hr Q6H40M IV 08/08/24 23:00 09/07/24 22:59 08/09/24 05:46 150 MLS/HR DIAGNOSTICS / RADIOLOGY: [ ] ASSESSMENT: Gastric outlet obstruction/bowel obstruction, [place] Hiatal hernia, POA Intractable nausea and vomiting POA Severe dehydration POA Acute kidney injury Elevated troponin R/O NSTEMI POA Uncontrolled diabetes POA Metabolic alkalosis POA Hypokalemia POA Sepsis due to UTI POA Acute urinary tract infection POA Large hiatal per CT POA PLAN: Continue PCCU Continue nothing by mouth Insert NG tube to intermittent suction Continue NS @ 150 ml / hr x2 bags and re evaluate Continue on Zosyn IV for empiric coverage Continue Protonix 40 mg IV daily for GI prophylaxis Continue Lovenox 80 mg subQ Give 300mg aspirin suppository Continue insulin sliding scale AC & HS with hypoglycemia protocol Echocardiogram pending, will follow up Cardiology consulted, appreciate recommendations General surgery consulted, appreciate recommendations Disposition: Pending improvement in clinical status CAROL ANN BOWEN MD August 09, 2024 12:37
[2024-08-09] MEDS: ASPIRIN 300 MG SUPPOSITORY PR ONE (14:32)
--- NOTE | 2024-08-09 14:46 | CONS ---
CONSULT NOTE: Consulting physician:Dr Bryant Consulting service: General surgery Reason for consultation: Large hiatal hernia History of present illness: This is a 64-year-old female consulted to surgery after presenting to the [facility] with concerns of nausea vomiting and diarrhea that began two days prior. Patient reports associated abdominal discomfort with meals as well. Upon concerns patient presented to the hospital for further evaluation. On presentation imaging performed concern for a large hiatal hernia with gastric distention. NG tube placed and adjustments made to placement in since patient h as had greater than 1200 mL of output. Patient reporting no flatus at this time. Patient again mentioned in chronic history with hiatal hernia but due to no significant complications in the past surgery was never really in consideration. On presentation patient also noted to have elevated troponins. Patient is currently pending cardiology evaluation. Patient NPO with IV fluids and IV antibiotics. WBCs elevated to 21.2. Hemoglobin stable Medical history: Hypertension, osteoarthritis and hyperlipidemia known history of hiatal hernia for greater than one year PAST SURGICAL HISTORY: Kidney stone removal, cholecystectomy PAST SOCIAL HISTORY: Patient lives alone. Patient denies alcohol tobacco and recreational drug use FAMILY HISTORY: Noncontributory Coded Allergies: No Known Drug Allergies (Unverified Allergy, Unknown, 08/08/24) Review of systems: General: No Fever, No Chills, No Night Sweats, No Fatigue, No Malaise, No Appetite, No Other HEENT: No Head Aches, No Visual Changes, No Eye Pain, No Ear Pain, No Dysphasia, No Sinus Congestion, No Post Nasal Drip, No Sore Throat, No Other Pulmonary: No Dyspnea, No Cough, No Pleuritic Chest Pain, No Other Cardiovascular: No: Chest Pain, Palpitations, Orthopnea, Paroxysmal No Dyspnea, Edema, Lt Headedness, Other Gastrointestinal: No: Nausea, Vomiting, Diarrhea, Constipation, Melena, Hematochezia, Other Genitourinary: No Dysuria, No Frequency, No Incontinence, No Hematuria, No Retention, No Other Musculoskeletal: No: other, neck pain, shoulder pain, arm pain, back pain, hand pain, leg pain, foot pain Skin: No Urticaria, No Rash, No Other Neurological: No: Weakness, Numbness, Incoordination, Change in speech, Confusion, Seizures, Other Physical exam: GENERAL APPEARANCE: The patient is awake, alert, and oriented, in no acute cardiopulmonary distress. NEUROLOGICAL: Cranial nerves II-XII grossly intact. Motor is 5/5 in bilateral upper and lower extremities proximal to distal. No sensory deficits. HEENT: Face is symmetric. Pupils are equal and reactive. Extraocular movements are intact. NECK: Supple. No JVD. No thyromegaly. No submental, submandibular, pre-/pos tauricular, occipital or supraclavicular lymphadenopathy. CHEST: Normal chest expansion. No Telemetry. LUNGS: Absence of any rales, rhonchi or any wheezing. CARDIOVASCULAR: Regular. S1 and S2 normal. No appreciable rubs, murmurs or gallops. ABDOMEN: Soft, nontender, and nondistended. There is no rebound, voluntary guarding, or rigidity. : Deferred. No Zuluaga. EXTREMITIES: Non-edematous and not cyanotic. No clubbing. Good capillary refill. SKIN: No skin breakdown. Assessment: This is a 64-year-old female with concerns of a large hiatal hernia and possible small bowel obstruction Plan: This point in time we will continue with conservative management We will await for Cardiology to evaluate for elevated troponins Continue with the NG tube to LIS Patient to remain NPO Surgical team to follow patient closely nursing report any further acute events and we continue to appreciate input from hospitalist team. Thank you KELSIE MONTGOMERY Jr. August 09, 2024 14:46
--- NOTE | 2024-08-09 23:04 | CONS ---
Cardiology Consult Note Attending Vat Packer: Dr. Fly Meza Consulting Physician: Hospitalist Date of Service: 08/09/2024 Reason for Consult: Elevated troponin HPI: This is a 64y/o female with a past medical history of HTN, HLP, and OA who presents with incessant nausea, vomiting, and diarrhea of 3 days in duration. The symptoms began spontaneously, shortly after eating a fast food meal, and over the ensuing 72 hours her symptoms were constant and progressively worsened. The symptoms were present throughout the day, were exacerbated by oral intake, and not alleviated by anything. Associated symptoms include generalized weakness/fatigue. Pertinent negatives include headache, dizziness, syncope, chest pain, chest pressure, palpitations, shortness of breath, PND, orthopnea, abdominal pain, weight gain, lower extremity swelling, diaphoresis, fever, or chills. The patient's progression of symptoms prompted her to seek a higher level of care. While on the inpatient service, laboratory data identified elevated HS troponin I levels. Cardiology was consulted for treatment recommendations. PMH: Listed above PSH: Listed above FH: Noncontributory SH: Denies alcohol, tobacco, or illicit drug use. Allergies: Coded Allergies: No Known Drug Allergies (Unverified Allergy, Unknown, 08/08/24) Review of systems: General: As per the HPI HEENT: Denies changes in vision, earache or sore throat Neck: Denies pain or stiffness Cardio: Denies chest pain, chest pressure, palpitations, or edema. Pulm: Denies SOB, coughing or wheezing GI: As per the HPI MSK: Denies decreased ROM or joint pain. Heme: Denies anemia, easy bruising, or bleeding. Neuro: Denies headache, dizziness, or syncope. Psyche: Denies anxiety, depression, or suicidal ideation. Physical Exam: Vital Signs Date Time Temp Pulse Resp B/P (MAP) Pulse Ox O2 Delivery O2 Flow Rate FiO2 08/09/24 20:05 98.4 110 18 150/82 95 Nasal Cannula 08/09/24 19:00 2.0 28 General: Alert and oriented. NAD. Ill appearing. HEENT: NC/AT. Oral mucosa is moist. NGT noted. Neck: No masses, JVD, or carotid bruits Lungs: NRD. SCM. B/L CTA. No wheezing, rales or rhonchi. Cardio: Tachycardia noted. Normal S1 and S2. +S4. PMI was not displaced. Abdomen: Soft. NT. ND. Normal active bowel sounds x 4 quadrants. Extremities: Diminished throughout. No edema, clubbing, or cyanosis. Neuro: CN II-XII were grossly intact. No focal deficits. Labs: Laboratory Tests Test 08/08/24 23:18 08/09/24 01:50 08/09/24 05:44 08/09/24 09:36 Range/Units Troponin I High Sensitivity 990 *H 964 *H 1372 *H 4-50 ng/L Urine Color YELLOW YELLOW Urine Appearance CLOUDY H CLEAR Urine pH 7.0 5.0-8.0 Urine Specific [place] 1.023 1.001-1.031 Urine Protein 100 H NEGATIVE mg/dL Urine Glucose (UA) NEGATIVE NEGATIVE mg/dL Urine Ketones 40 H NEGATIVE mg/dL Urine Occult Blood MODERATE H NEGATIVE Urine Nitrate NEGATIVE NEGATIVE Urine Bilirubin NEGATIVE NEGATIVE mg/dL Urine Urobilinogen 0.2 0.2-1.0 mg/dL Urine Leukocyte Esterase 250 H NEGATIVE Cnadis/uL Urine RBC 2-5 H 0-1 /HPF Urine WBC 51-100 H 0-1 /HPF Urine Squamous Epithelial Cells FEW 0-2 /HPF Urine Bacteria RARE None Seen /HPF Urine Hyaline Casts 2-5 H 0-1 /LPF /LPF Urine Opiates Screen NEGATIVE NEGATIVE Urine Barbiturates Screen NEGATIVE NEGATIVE Urine Phencyclidine Screen NEGATIVE NEGATIVE Urine Amphetamines Screen NEGATIVE NEGATIVE Urine Benzodiazepines Screen NEGATIVE NEGATIVE Urine Cocaine Screen NEGATIVE NEGATIVE Urine Marijuana (THC) Screen NEGATIVE NEGATIVE White Blood Count 21.4 H 4.8-10.8 K/uL Red Blood Count 5.09 4.00-5.50 MIL/uL Hemoglobin 15.2 12.0-16.0 g/dL Hematocrit 45.9 36-48 % Mean Corpuscular Volume 90.2 79-99 fL Mean Corpuscular Hemoglobin 29.9 27.0-33.0 pg Mean Corpuscular Hemoglobin Concent 33.1 32.0-36.0 g/dL Red Cell Distribution Width 14.0 11.0-15.5 % Platelet Count 271 130-400 K/uL Mean Platelet Volume 9.6 7.5-10.5 fL Immature Granulocyte % (Auto) 0.5 0-1 % Neutrophils (%) (Auto) 92.2 H 40.0-77.0 % Lymphocytes (%) (Auto) 3.7 L 21.0-51.0 % Monocytes (%) (Auto) 3.5 3.0-13.0 % Eosinophils (%) (Auto) 0.0 0.0-8.0 % Basophils (%) (Auto) 0.1 0.0-5.0 % Neutrophils # (Auto) 19.7 H 1.8-7.7 K/uL Lymphocytes # (Auto) 0.8 L 1.0-4.8 K/uL Monocytes # (Auto) 0.8 0.1-1.0 K/uL Eosinophils # (Auto) 0.00 0.00-0.70 K/uL Basophils # (Auto) 0.02 0.00-0.20 K/uL Absolute Immature Granulocyte (auto 0.11 0-1 K/uL Nucleated Red Blood Cells 0.0 0.0-0.19 % Erythrocyte Sedimentation Rate 13 0-30 MM/HR Sodium Level 143 136-145 mmol/L Potassium Level 2.6 *L 3.5-5.1 mmol/L Chloride Level 93 L 101-111 mmol/L Carbon Dioxide Level 39 H 21-32 mmol/L Blood Urea Nitrogen 31 H 7-18 mg/dL Creatinine 1.3 H 0.5-1.0 mg/dL Glomerular Filtration Rate Calc 45 >90 mL/min Random Glucose 165 H 70-105 mg/dL Hemoglobin A1c 5.6 4.0-6.0 % Estimated Average Glucose (eAG) 114 70-126 mg/dL Lactic Acid Level 2.3 1.5 0.8-2.5 mmol/L Total Calcium 8.7 8.5-10.1 mg/dL Magnesium Level 2.10 1.80-2.40 mg/dL Total Bilirubin 0.9 0.2-1.0 mg/dL Aspartate Amino Transf (AST/SGOT) 42 H 10-37 U/L Alanine Aminotransferase (ALT/SGPT) 28 12-78 U/L Alkaline Phosphatase 97 50-136 U/L Total Protein 8.4 H 6.0-8.3 g/dL Albumin 3.9 # 3.5-5.0 g/dL Procalcitonin 0.07 0.05-0.5 ng/mL Thyroid Stimulating Hormone (TSH) 0.31 L 0.36-3.74 uIU/mL Test 08/09/24 15:25 08/09/24 20:28 Range/Units Potassium Level 2.5 *L 3.5-5.1 mmol/L Whole Blood Glucose 104 70-110 MG/DL Assessment: -Incessant nausea, vomiting, and diarrhea -Leukocytosis -Lactic acidosis -Viral gastroenteritis -SBO, currently with NGT to LIS -UTI -Volume depletion -DONELL -Severe electrolyte derangement -Elevated troponin (type II NJ) -HTN -HLP -OA Plan: 1. Elevated troponin (type II NJ) -Stable -Cardiac enzymes-HS troponin I: [id number]>1372 -The elevated troponin is thought to be secondary to a type II NJ (demand ischemia) induced by the gastroenteritis, severe volume depletion, SBO, leukocytosis, lactic acidosis, and UTI, and not secondary to ACS. -Furthermore, the SBO, currently NPO with the NGT in place with a NGT in place, precludes the patient from further ischemic cardiac evaluation at this time. -Instead, we recommend that the patient be started on aspirin 81 mg daily once the patient is cleared for oral intake. -We will obtain a 2D echocardiogram in order to assess the patient's systolic/diastolic function and for any wall motion abnormalities. -We will likely refer the patient for a CCTA or Lexiscan stress test as an outpatient once she recovers from the above mentioned inciting factors. Thank you for this interesting consult and allowing us to participate in the care of your patient. This case was discussed with my Supervising Physician, Dr. Fly Meza, and the above mentioned plan was formulated and agreed upon. -Consult Note written by Junior Lema, MSN, [employer], AGACNP-BC [employer]IOR [employer] August 09, 2024 23:04
[2024-08-10] VITALS (10 sets, daily range): BP systolic 152–181; BP diastolic 69–96; PULSE 78–103; RESP 18–22; TEMP 97.9–99; O2SAT 93–98
[2024-08-10] MEDS: metoCLOPRAmide 10 MG/2 ML VIAL IVP ONE (00:05)
[2024-08-10] MEDS: metoPROLOL tartRATE 1 MG/ML 5ML VIAL IV ONE (00:13)
--- NOTE | 2024-08-10 00:16 | HMCSR ---
APPROVED REPORT EXAM: Two-dimensional and M-mode echocardiogram with Doppler and color Doppler. INDICATION ICD: Elevated troponin 2D Dimensions RVDd3.8 cmLVEF(%)56.3 (>50%)LVED Vol(simp.)85.0 mL IVSd1.1 (0.7-1.1cm)FS(%)29 %LVES Vol(simp.)30.0 mL LVDd3.9 (3.8-5.6cm)LA (2D)2.3 (1.6-4.0cm)LVEF(%, simp.)65 % PWd1.0 (0.7-1.1cm)Ao Root(2D)3.1 (2.0-3.7cm)LA ESV INDEX (BP)17.48 mL/m2 IVSs1.1 cmLVOT diam2.3 (1.8-2.4cm) LVDs2.7 (2.5-4.0cm) PWs1.4 cm Deformation Strain Apical 4-15.7 % Apical 2-20.2 % Apical 3-16.5 % Global Strain-17.5 % M-Mode Dimensions EPSS0.6 cm LA (MM)2.5 (1.6-4.0cm) Ao Root(MM)3.1 (2.0-3.7cm) Aortic Valve AoV Vmax2.2 m/Ana Peak GR20.2 mmHgLVOT Vmax1.4 m/s AoV VTI0.3 mAo Mean GR9.5 mmHgLVOT VTI0.24 m LO (VMAX)2.56 cm2AVA (VTI) 2.9 cm2 Mitral Valve MV E Vmax65.2 cm/sDECEL Fzlv197 ms MV A Vmax85.6 cm/sP 1/2 T31 ms E/A ratio0.8MVA (PHT)7.1 cm2 TDI E/E' Uuefrt14.4E/E' Evriwao79.6 Medial E' Peak V3.75 cm/sLateral E' Peak V4.17 cm/s Pulmonary Valve PV Vmax1.4 m/sPV VTI0.19 mPV Mean GR4.7 mmHg PV Peak GR7.9 mmHgPI End Radha. Justice 188.8 cm/s Tricuspid Valve TR Vmax1.8 m/sRVSP11.6 mmHg TR Peak GR12.7 mmHg Left Ventricle The left ventricle is normal size. No regional wall motion abnormalities noted. Mild concentric left ventricular hypertrophy. Left ventricular systolic function is normal, estimated LVEF 60 to 65%. Inde terminate diastolic function. Right Ventricle The right ventricle is normal size. The right ventricular systolic function is normal. Atria The left atrium size is normal. The right atrium size is normal. Aortic Valve Aortic valve is trileaflet. No aortic regurgitation is present. There is no aortic valvular stenosis. Mitral Valve The mitral valve is normal in structure. Trace mitral regurgitation. There is no mitral valve stenosi s. Tricuspid Valve The tricuspid valve is normal in structure. Trace tricuspid regurgitation. RVSP is 13 mmHg. Pulmonic Valve Pulmonic valve is not well visualized. Great Vessels The aortic root is normal in size. IVC is not visualized. Pericardium There is no pericardial effusion. Other Information Quality : Adequate Conclusion The cardiac chambers are normal in size. Mild concentric left ventricular hypertrophy. No regional wall motion abnormalities noted. Left ventricular systolic function is normal, estimated LVEF 60 to 65%. Indeterminate diastolic function. Trace mitral regurgitation. Trace tricuspid regurgitation. RVSP is 13 mmHg. There is no pericardial effusion.
[2024-08-10 04:08] LABS: BASOPHILS # (AUTO) 0.03 K/uL (0.00-0.20); BASOPHILS % (AUTO) 0.2 % (0.0-5.0); HEMATOCRIT 40.5 % (36-48); IMMATURE GRANULOCYTE ABSOLUTE 0.14 K/uL (0-1); LYMPHOCYTES # (AUTO) 1.2 K/uL (1.0-4.8); LYMPHOCYTES % (AUTO) 5.9 % (21.0-51.0); MEAN CORPUSCULAR HEMOGLOBIN 30.3 pg (27.0-33.0); MEAN CORPUSCULAR HGB CONC 32.8 g/dL (32.0-36.0); MEAN CORPUSCULAR VOLUME 92.3 fL (79-99); MONOCYTES # (AUTO) 2.5 K/uL (0.1-1.0); MONOCYTES % (AUTO) 12.7 % (3.0-13.0); NEUTROPHILS # (AUTO) 15.8 K/uL (1.8-7.7); NEUTROPHILS % (AUTO) 80.5 % (40.0-77.0); PLATELET COUNT (AUTO) 219 K/uL (130-400); RED BLOOD CELL COUNT(AUTO) 4.39 MIL/uL (4.00-5.50); RED CELL DISTRIBUTION WIDTH 14.1 % (11.0-15.5); WHITE BLOOD COUNT (AUTO) 19.6 K/uL (4.8-10.8)
[2024-08-10 04:45] LABS: CREATININE 0.9 mg/dL (0.5-1.0); MAGNESIUM 2.3 mg/dL (1.80-2.40); PHOSPHORUS 2.4 mg/dL (2.5-4.9); POTASSIUM 3.5 mmol/L (3.5-5.1)
[2024-08-10] MEDS: LACTATED RINGERS IV ONE (05:41)
[2024-08-10] MEDS: 0.9%NACL 1000ML 1,000 ML IV SCH (05:41)
[2024-08-10] MEDS: LAbetaLOL 20MG SYG IV PRN (09:58)
--- NOTE | 2024-08-10 10:21 | PN ---
[facility] PROGRESS NOTE Date of Service: August 10, 2024 Time of Service: 10:15 SUBJECTIVE: 08/08 patient seen at bedside, no acute events overnight. She continues with nausea, imaging reviewed once again showing a large distended stomach full of fluid and a recognizable hiatal hernia. The pylorus and 1st part of the duodenum are in the thoracic cavity and the duodenum passes through the hiatal hernia into the abdominal cavity. This narrowing along with they distended stomach seems to be causing a gastric outlet obstruction, NG tube will be inserted and patient will be decompressed. General surgery will be consulted for further recommendations. Patient has slow up trend of troponins, she is NPO and can not take normal ACS medications, we will give a rectal suppository of aspirin. Further recommendations per Cardiology 08/09 patient seen at bedside, no acute events overnight. NG tube output proximally 1600 cc, patient states she is feeling slightly better. She continues on IV fluids, General surgery recommended conservative management we will continue decompression and IV fluids. Further recommendations per General surgery. She has been hypertensive, we will start p.r.n. hydralazine and labetalol as she can not take p.o. medications. WBC improved from 21.4 down to 19.6, potassium improved from 2.5 up to 3.5, remainder of her labs are relatively unremarkable. REVIEW OF SYSTEMS 12 point ROS negative unless noted in HPI PHYSICAL EXAM GENERAL APPEARANCE: The patient is awake, alert, and oriented, in no acute cardiopulmonary distress. NEUROLOGICAL: Cranial nerves II-XII grossly intact. Motor is 5/5 in bilateral upper and lower extremities proximal to distal. No sensory deficits. HEENT: Face is symmetric. Pupils are equal and reactive. Extraocular movements are intact. NECK: Supple. No JVD. No thyromegaly. No submental, submandibular, pre-/p ostauricular, occipital or supraclavicular lymphadenopathy. CHEST: Normal chest expansion. No Telemetry. LUNGS: Absence of any rales, rhonchi or any wheezing. CARDIOVASCULAR: Regular. S1 and S2 normal. No appreciable rubs, murmurs or gallops. ABDOMEN: Soft, nontender, and nondistended. There is no rebound, voluntary guarding, or rigidity. : Deferred. No [place]. EXTREMITIES: Non-edematous and not cyanotic. No clubbing. Good capillary refill. SKIN: No skin breakdown. Vital Signs (last 8hr) Date Time Temp Pulse Resp B/P (MAP) Pulse Ox O2 Delivery O2 Flow Rate FiO2 08/10/24 08:00 99.0 96 19 172/80 93 Nasal Cannula 2.0 08/10/24 06:30 95 18 N/Cannula Low lpm 2.0 28 08/10/24 04:30 98.4 103 18 153/96 95 Nasal Cannula 08/10/24 02:36 99 18 152/70 95 Nasal Cannula 2.0 LABS: Laboratory: Test 08/10/24 05:37 08/10/24 04:01 08/09/24 09:36 08/09/24 05:44 Range/Units Whole Blood Glucose 99 70-110 MG/DL White Blood Count 19.6 H 4.8-10.8 K/uL Red Blood Count 4.39 4.00-5.50 MIL/uL Hemoglobin 13.3 12.0-16.0 g/dL Hematocrit 40.5 36-48 % Mean Corpuscular Volume 92.3 79-99 fL Mean Corpuscular Hemoglobin 30.3 27.0-33.0 pg Mean Corpuscular Hemoglobin Concent 32.8 32.0-36.0 g/dL Red Cell Distribution Width 14.1 11.0-15.5 % Platelet Count 219 130-400 K/uL Mean Platelet Volume 9.7 7.5-10.5 fL Immature Granulocyte % (Auto) 0.7 0-1 % Neutrophils (%) (Auto) 80.5 H 40.0-77.0 % Lymphocytes (%) (Auto) 5.9 L 21.0-51.0 % Monocytes (%) (Auto) 12.7 3.0-13.0 % Eosinophils (%) (Auto) 0.0 0.0-8.0 % Basophils (%) (Auto) 0.2 0.0-5.0 % Neutrophils # (Auto) 15.8 H 1.8-7.7 K/uL Lymphocytes # (Auto) 1.2 1.0-4.8 K/uL Monocytes # (Auto) 2.5 H 0.1-1.0 K/uL Eosinophils # (Auto) 0.00 0.00-0.70 K/uL Basophils # (Auto) 0.03 0.00-0.20 K/uL Absolute Immature Granulocyte (auto 0.14 0-1 K/uL Nucleated Red Blood Cells 0.0 0.0-0.19 % Sodium Level 146 H 136-145 mmol/L Potassium Level 3.5 3.5-5.1 mmol/L Chloride Level 102 101-111 mmol/L Carbon Dioxide Level 35 H 21-32 mmol/L Blood Urea Nitrogen 30 H 7-18 mg/dL Creatinine 0.9 0.5-1.0 mg/dL Glomerular Filtration Rate Calc 71 >90 mL/min Random Glucose 109 H 70-105 mg/dL Total Calcium 8.6 8.5-10.1 mg/dL Phosphorus Level 2.4 L 2.5-4.9 mg/dL Magnesium Level 2.30 1.80-2.40 mg/dL Lactic Acid Level 1.5 0.8-2.5 mmol/L Troponin I High Sensitivity 1372 *H 4-50 ng/L Erythrocyte Sedimentation Rate 13 0-30 MM/HR Hemoglobin A1c 5.6 4.0-6.0 % Estimated Average Glucose (eAG) 114 70-126 mg/dL Total Bilirubin 0.9 0.2-1.0 mg/dL Aspartate Amino Transf (AST/SGOT) 42 H 10-37 U/L Alanine Aminotransferase (ALT/SGPT) 28 12-78 U/L Alkaline Phosphatase 97 50-136 U/L Total Protein 8.4 H 6.0-8.3 g/dL Albumin 3.9 # 3.5-5.0 g/dL Procalcitonin 0.07 0.05-0.5 ng/mL Thyroid Stimulating Hormone (TSH) 0.31 L 0.36-3.74 uIU/mL Test 08/09/24 01:50 08/08/24 20:03 08/08/24 19:48 08/08/24 18:55 Range/Units Urine Color YELLOW YELLOW Urine Appearance CLOUDY H CLEAR Urine pH 7.0 5.0-8.0 Urine Specific [place] 1.023 1.001-1.031 Urine Protein 100 H NEGATIVE mg/dL Urine Glucose (UA) NEGATIVE NEGATIVE mg/dL Urine Ketones 40 H NEGATIVE mg/dL Urine Occult Blood MODERATE H NEGATIVE Urine Nitrate NEGATIVE NEGATIVE Urine Bilirubin NEGATIVE NEGATIVE mg/dL Urine Urobilinogen 0.2 0.2-1.0 mg/dL Urine Leukocyte Esterase 250 H NEGATIVE Candis/uL Urine RBC 2-5 H 0-1 /HPF Urine WBC 51-100 H 0-1 /HPF Urine Squamous Epithelial Cells FEW 0-2 /HPF Urine Bacteria RARE None Seen /HPF Urine Hyaline Casts 2-5 H 0-1 /LPF /LPF Urine Opiates Screen NEGATIVE NEGATIVE Urine Barbiturates Screen NEGATIVE NEGATIVE Urine Phencyclidine Screen NEGATIVE NEGATIVE Urine Amphetamines Screen NEGATIVE NEGATIVE Urine Benzodiazepines Screen NEGATIVE NEGATIVE Urine Cocaine Screen NEGATIVE NEGATIVE Urine Marijuana (THC) Screen NEGATIVE NEGATIVE Blood Gas Specimen Type Arterial Arterial Blood pH 7.546 H 7.350-7.450 Arterial Blood Partial Pressure CO2 48 H 32-45 mmHg Arterial Blood Partial Pressure O2 73.9 L 83.0-108.0 mmHg Arterial Blood HCO3 40.3 H 21.0-28.0 mmol/L Arterial Blood Oxygen Saturation 96.2 94.0-98.0 % Arterial Blood Base Excess 15.6 H -2.0-3.0 mmol/L Blood Gas Temperature 37.0 35.5-37.0 CELSIUS Blood Gas Flow-by 2.00 0.00-15.00 L/min Blood Gas Vent Mode NC ROOM AIR FiO2 28.0 % Blood Gas Specimen Comment RR RN Influenza Type A Antigen Negative For Type A NEGATIVE Influenza Type B Antigen Negative For Type B NEGATIVE SARS-CoV-2, RNA, NAAT NEGATIVE SARS CoV-2 NEGATIVE White Cell Morphology Comment See comments Direct Bilirubin 0.2 0.0-0.3 mg/dL Total Creatine Kinase 213 21-232 U/L Lipase 25 16-77 U/L Current Medications Medications (Trade) Dose Ordered Sig/Jie Route PRN Reason Start Time Stop Time Status Last Admin Dose Admin Albuterol (DUOneb) 1 udvial [id number] IH 08/09/24 02:00 08/09/24 06:43 DC 08/09/24 06:37 1 UDVIAL Albuterol (DUOneb) 1 udvial [id number] PRN IH SHORTNESS OF BREATH 08/09/24 07:00 09/08/24 01:59 Aspirin (Aspirin 81mg Ec Tab) 81 mg DAILY PO 08/09/24 09:00 09/08/24 08:59 Enoxaparin Sodium (Lovenox) 30 mg DAILY SQ 08/09/24 09:00 08/08/24 23:29 DC Labetalol HCl (TRANdate 20MG SYG) 10 mg Q6H PRN IV IF SBP GREATER THAN 160 08/10/24 09:00 09/09/24 08:59 Magnesium Sulfate 50 ml @ 0 mls/hr PROTOCOL PRN IV OTHER [SEE ORDER COMMENTS] 08/08/24 23:00 09/07/24 22:59 Ondansetron HCl (zoFRAN 4MG INJ) 4 mg Q6H PRN IV NAUSEA/VOMITING 08/08/24 23:00 09/07/24 22:59 Pantoprazole Sodium (PROTonix 40MG INJ) 40 mg DAILY IVP 08/09/24 09:00 09/08/24 08:59 08/09/24 09:26 40 MG Piperacillin Sod/ Tazobactam Sod 50 ml @ 12.5 mls/hr Q8H IV 08/09/24 03:00 08/19/24 02:59 08/10/24 02:32 12.5 MLS/HR Potassium Chloride 100 ml @ 50 mls/hr AD PRN IV POTASSIUM PROTOCOL 08/08/24 23:00 09/07/24 22:59 08/10/24 05:03 50 MLS/HR Potassium Chloride 100 ml @ 100 mls/hr AD PRN IV POTASSIUM PROTOCOL 08/09/24 07:00 09/08/24 06:59 08/09/24 23:41 100 MLS/HR Sodium Chloride 1,000 ml @ 125 mls/hr Q8H IV 08/10/24 06:00 09/09/24 05:59 08/10/24 05:41 125 MLS/HR Sodium Chloride 1,000 ml @ 150 mls/hr Q6H40M IV 08/08/24 23:00 08/10/24 05:40 DC 08/09/24 05:46 150 MLS/HR DIAGNOSTICS / RADIOLOGY: [ ] ASSESSMENT: Gastric outlet obstruction/bowel obstruction, [place] Hiatal hernia, POA Intractable nausea and vomiting POA Severe dehydration POA Acute kidney injury Elevated troponin R/O NSTEMI POA Uncontrolled diabetes POA Metabolic alkalosis POA Hypokalemia POA Sepsis due to UTI POA Acute urinary tract infection POA Large hiatal per CT POA PLAN: Continue PCCU Continue nothing by mouth Insert NG tube to intermittent suction Continue NS @ 150 ml / hr x2 bags and re evaluate Continue on Zosyn IV for empiric coverage Continue Protonix 40 mg IV daily for GI prophylaxis Continue Lovenox 80 mg subQ Give 300mg aspirin suppository Continue insulin sliding scale AC & HS with hypoglycemia protocol Cardiology consulted, appreciate recommendations General surgery consulted, appreciate recommendations Disposition: Pending improvement in clinical status CAROL ANN BOWEN MD August 10, 2024 10:21
--- NOTE | 2024-08-10 19:48 | PN ---
GENERAL SURGERY PROGRESS NOTE Date/Time Patient Seen: [ ] Problem List: Large hiatal hernia, nausea or vomiting Interval History: Patient with no nausea or vomiting today. NG tube output only 600 today. Passing gas. Current Medications Medications (Trade) Dose Ordered Sig/Jie Route Start Time Stop Time Status Last Admin Dose Admin Albuterol (DUOneb) 1 udvial [id number] IH 08/09/24 02:00 08/09/24 06:43 DC 08/09/24 06:37 1 UDVIAL Aspirin (Aspirin 81mg Ec Tab) 81 mg DAILY PO 08/09/24 09:00 09/08/24 08:59 Enoxaparin Sodium (Lovenox) 30 mg DAILY SQ 08/09/24 09:00 08/08/24 23:29 DC Pantoprazole Sodium (PROTonix 40MG INJ) 40 mg DAILY IVP 08/09/24 09:00 09/08/24 08:59 08/10/24 11:56 40 MG Piperacillin Sod/ Tazobactam Sod 50 ml @ 12.5 mls/hr Q8H IV 08/09/24 03:00 08/19/24 02:59 08/10/24 11:56 12.5 MLS/HR Sodium Chloride 1,000 ml @ 125 mls/hr Q8H IV 08/10/24 06:00 09/09/24 05:59 08/10/24 15:04 125 MLS/HR Sodium Chloride 1,000 ml @ 150 mls/hr Q6H40M IV 08/08/24 23:00 08/10/24 05:40 DC 08/09/24 05:46 150 MLS/HR Physical Examination: GENERAL: [No acute distress.] HEAD: normocephalic LUNGS: [Clear breath sounds bilaterally. CVRR ABD: [Bowel sounds normal, soft, nontender, SKIN: [No rashes or lesions noted.] NEURO: [Awake, alert, and oriented x3.\ Vital Signs (last 8hr) Date Time Temp Pulse Resp B/P (MAP) Pulse Ox O2 Delivery O2 Flow Rate FiO2 08/10/24 18:19 88 18 N/Cannula Low lpm 1.0 24 08/10/24 17:32 80 163/69 08/10/24 16:00 97.9 80 19 163/69 94 Nasal Cannula 1.0 08/10/24 14:32 158/74 08/10/24 13:48 78 181/71 08/10/24 13:47 181/71 08/10/24 12:00 98.4 84 19 160/80 96 Room Air 2.0 Laboratory: [ ] Hematology Labs: Test 08/10/24 04:01 08/09/24 05:44 Range/Units White Blood Count 19.6 H 4.8-10.8 K/uL Red Blood Count 4.39 4.00-5.50 MIL/uL Hemoglobin 13.3 12.0-16.0 g/dL Hematocrit 40.5 36-48 % Mean Corpuscular Volume 92.3 79-99 fL Mean Corpuscular Hemoglobin 30.3 27.0-33.0 pg Mean Corpuscular Hemoglobin Concent 32.8 32.0-36.0 g/dL Red Cell Distribution Width 14.1 11.0-15.5 % Platelet Count 219 130-400 K/uL Mean Platelet Volume 9.7 7.5-10.5 fL Immature Granulocyte % (Auto) 0.7 0-1 % Neutrophils (%) (Auto) 80.5 H 40.0-77.0 % Lymphocytes (%) (Auto) 5.9 L 21.0-51.0 % Monocytes (%) (Auto) 12.7 3.0-13.0 % Eosinophils (%) (Auto) 0.0 0.0-8.0 % Basophils (%) (Auto) 0.2 0.0-5.0 % Neutrophils # (Auto) 15.8 H 1.8-7.7 K/uL Lymphocytes # (Auto) 1.2 1.0-4.8 K/uL Monocytes # (Auto) 2.5 H 0.1-1.0 K/uL Eosinophils # (Auto) 0.00 0.00-0.70 K/uL Basophils # (Auto) 0.03 0.00-0.20 K/uL Absolute Immature Granulocyte (auto 0.14 0-1 K/uL Nucleated Red Blood Cells 0.0 0.0-0.19 % Erythrocyte Sedimentation Rate 13 0-30 MM/HR Chemistry Labs: Test 08/10/24 11:10 08/10/24 05:37 08/10/24 04:01 08/09/24 09:36 Range/Units Potassium Level 3.5 3.5-5.1 mmol/L Whole Blood Glucose 99 70-110 MG/DL Sodium Level 146 H 136-145 mmol/L Chloride Level 102 101-111 mmol/L Carbon Dioxide Level 35 H 21-32 mmol/L Blood Urea Nitrogen 30 H 7-18 mg/dL Creatinine 0.9 0.5-1.0 mg/dL Glomerular Filtration Rate Calc 71 >90 mL/min Random Glucose 109 H 70-105 mg/dL Total Calcium 8.6 8.5-10.1 mg/dL Phosphorus Level 2.4 L 2.5-4.9 mg/dL Magnesium Level 2.30 1.80-2.40 mg/dL Lactic Acid Level 1.5 0.8-2.5 mmol/L Troponin I High Sensitivity 1372 *H 4-50 ng/L Test 08/09/24 05:44 Range/Units Hemoglobin A1c 5.6 4.0-6.0 % Estimated Average Glucose (eAG) 114 70-126 mg/dL Total Bilirubin 0.9 0.2-1.0 mg/dL Aspartate Amino Transf (AST/SGOT) 42 H 10-37 U/L Alanine Aminotransferase (ALT/SGPT) 28 12-78 U/L Alkaline Phosphatase 97 50-136 U/L Total Protein 8.4 H 6.0-8.3 g/dL Albumin 3.9 # 3.5-5.0 g/dL Procalcitonin 0.07 0.05-0.5 ng/mL Thyroid Stimulating Hormone (TSH) 0.31 L 0.36-3.74 uIU/mL Diagnostics / Radiology: [Copy/Paste Echos/Imaging Report here] Impression and Plan: Patient with a large hiatal hernia. Seems to be improving. We will try to do a CT scan with oral contrast tomorrow and see how she tolerates it make sure that the contrast goes all the way through. If patient has recurrent symptoms we might need a to proceed to surgery. Ideally I discussed with the patient we do not want to repair this in the acute setting and if she were able to tolerate a diet and be discharged would be better and have a deferred repair of her hiatal hernia later date. We will await results of the CT scan for tomorrow. KEYONNA ESPINO MD August 10, 2024 19:48
[2024-08-11] VITALS (9 sets, daily range): BP systolic 136–180; BP diastolic 62–95; PULSE 73–93; RESP 16–22; TEMP 97.6–99.7; O2SAT 94–96
[2024-08-11 04:14] LABS: BASOPHILS # (AUTO) 0.02 K/uL (0.00-0.20); BASOPHILS % (AUTO) 0.2 % (0.0-5.0); IMMATURE GRANULOCYTE ABSOLUTE 0.09 K/uL (0-1); LYMPHOCYTES # (AUTO) 1.4 K/uL (1.0-4.8); MEAN CORPUSCULAR HEMOGLOBIN 30.5 pg (27.0-33.0); MEAN CORPUSCULAR HGB CONC 32.5 g/dL (32.0-36.0); MONOCYTES # (AUTO) 1.4 K/uL (0.1-1.0); MONOCYTES % (AUTO) 11.9 % (3.0-13.0); NEUTROPHILS # (AUTO) 8.9 K/uL (1.8-7.7); NEUTROPHILS % (AUTO) 75.1 % (40.0-77.0); PLATELET COUNT (AUTO) 204 K/uL (130-400); RED BLOOD CELL COUNT(AUTO) 3.83 MIL/uL (4.00-5.50); RED CELL DISTRIBUTION WIDTH 13.9 % (11.0-15.5); WHITE BLOOD COUNT (AUTO) 11.8 K/uL (4.8-10.8)
[2024-08-11 04:37] LABS: CREATININE 0.6 mg/dL (0.5-1.0); POTASSIUM 4.2 mmol/L (3.5-5.1)
--- NOTE | 2024-08-11 10:37 | PN ---
[facility] PROGRESS NOTE Date of Service: Aug 11, 2024 Time of Service: 10:24 SUBJECTIVE: 08/09 patient seen at bedside, no acute events overnight. She continues with nausea, imaging reviewed once again showing a large distended stomach full of fluid and a recognizable hiatal hernia. The pylorus and 1st part of the duodenum are in the thoracic cavity and the duodenum passes through the hiatal hernia into the abdominal cavity. This narrowing along with they distended stomach seems to be causing a gastric outlet obstruction, NG tube will be inserted and patient will be decompressed. General surgery will be consulted for further recommendations. Patient has slow up trend of troponins, she is NPO and can not take normal ACS medications, we will give a rectal suppository of aspirin. Further recommendations per Cardiology 08/10 patient seen at bedside, no acute events overnight. NG tube output proximally 1600 cc, patient states she is feeling slightly better. She continues on IV fluids, General surgery recommended conservative management we will continue decompression and IV fluids. Further recommendations per General surgery. She has been hypertensive, we will start p.r.n. hydralazine and labetalol as she can not take p.o. medications. WBC improved from 21.4 down to 19.6, potassium improved from 2.5 up to 3.5, remainder of her labs are relatively unremarkable. 08/11 patient seen at bedside, no acute events overnight. General surgery recommending CT of the abdomen with oral contrast today to see if contrast goes through. NG tube will be clamped prior to the procedure so that contrast as a chance to go through. REVIEW OF SYSTEMS 12 point ROS negative unless noted in HPI PHYSICAL EXAM GENERAL APPEARANCE: The patient is awake, alert, and oriented, in no acute cardiopulmonary distress. NEUROLOGICAL: Cranial nerves II-XII grossly intact. Motor is 5/5 in bilateral upper and lower extremities proximal to distal. No sensory deficits. HEENT: Face is symmetric. Pupils are equal and reactive. Extraocular movements are intact. NECK: Supple. No JVD. No thyromegaly. No submental, submandibular, pre-/pos tauricular, occipital or supraclavicular lymphadenopathy. CHEST: Normal chest expansion. No Telemetry. LUNGS: Absence of any rales, rhonchi or any wheezing. CARDIOVASCULAR: Regular. S1 and S2 normal. No appreciable rubs, murmurs or gallops. ABDOMEN: Soft, nontender, and nondistended. There is no rebound, voluntary guarding, or rigidity. : Deferred. No Zuluaga. EXTREMITIES: Non-edematous and not cyanotic. No clubbing. Good capillary refill. SKIN: No skin breakdown. Vital Signs (last 8hr) Date Time Temp Pulse Resp B/P (MAP) Pulse Ox O2 Delivery O2 Flow Rate FiO2 08/11/24 08:14 97.5 73 18 136/74 94 Room Air 08/11/24 07:26 74 18 N/A Room Air 21 08/11/24 03:46 99.0 80 22 141/62 95 Room Air LABS: Laboratory: Test 08/11/24 04:59 08/11/24 03:40 08/10/24 04:01 Range/Units Whole Blood Glucose 72 70-110 MG/DL White Blood Count 11.8 #H 4.8-10.8 K/uL Red Blood Count 3.83 L 4.00-5.50 MIL/uL Hemoglobin 11.7 L 12.0-16.0 g/dL Hematocrit 36.0 36-48 % Mean Corpuscular Volume 94.0 79-99 fL Mean Corpuscular Hemoglobin 30.5 27.0-33.0 pg Mean Corpuscular Hemoglobin Concent 32.5 32.0-36.0 g/dL Red Cell Distribution Width 13.9 11.0-15.5 % Platelet Count 204 130-400 K/uL Mean Platelet Volume 10.1 7.5-10.5 fL Immature Granulocyte % (Auto) 0.8 0-1 % Neutrophils (%) (Auto) 75.1 40.0-77.0 % Lymphocytes (%) (Auto) 12.0 L 21.0-51.0 % Monocytes (%) (Auto) 11.9 3.0-13.0 % Eosinophils (%) (Auto) 0.0 0.0-8.0 % Basophils (%) (Auto) 0.2 0.0-5.0 % Neutrophils # (Auto) 8.9 H 1.8-7.7 K/uL Lymphocytes # (Auto) 1.4 1.0-4.8 K/uL Monocytes # (Auto) 1.4 H 0.1-1.0 K/uL Eosinophils # (Auto) 0.00 0.00-0.70 K/uL Basophils # (Auto) 0.02 0.00-0.20 K/uL Absolute Immature Granulocyte (auto 0.09 0-1 K/uL Nucleated Red Blood Cells 0.0 0.0-0.19 % Sodium Level 145 136-145 mmol/L Potassium Level 4.2 3.5-5.1 mmol/L Chloride Level 106 101-111 mmol/L Carbon Dioxide Level 31 21-32 mmol/L Blood Urea Nitrogen 19 H 7-18 mg/dL Creatinine 0.6 0.5-1.0 mg/dL Glomerular Filtration Rate Calc 99 >90 mL/min Random Glucose 74 70-105 mg/dL Total Calcium 8.4 L 8.5-10.1 mg/dL Phosphorus Level 2.4 L 2.5-4.9 mg/dL Magnesium Level 2.30 1.80-2.40 mg/dL Current Medications Medications (Trade) Dose Ordered Sig/Jie Route PRN Reason Start Time Stop Time Status Last Admin Dose Admin Albuterol (DUOneb) 1 udvial [id number] IH 08/09/24 02:00 08/09/24 06:43 DC 08/09/24 06:37 1 UDVIAL Albuterol (DUOneb) 1 udvial [id number] PRN IH SHORTNESS OF BREATH 08/09/24 07:00 09/08/24 01:59 Aspirin (Aspirin 81mg Ec Tab) 81 mg DAILY PO 08/09/24 09:00 09/08/24 08:59 Enoxaparin Sodium (Lovenox) 30 mg DAILY SQ 08/09/24 09:00 08/08/24 23:29 DC Labetalol HCl (TRANdate 20MG SYG) 10 mg Q6H PRN IV IF SBP GREATER THAN 160 08/10/24 09:00 08/10/24 19:04 DC 08/10/24 17:32 10 MG Magnesium Sulfate 50 ml @ 0 mls/hr PROTOCOL PRN IV OTHER [SEE ORDER COMMENTS] 08/08/24 23:00 09/07/24 22:59 Metoprolol Tartrate (loprESSOR) 5 mg Q4H PRN IV ADMINISTER FOR SBP > 160 08/10/24 19:30 09/09/24 19:29 Ondansetron HCl (zoFRAN 4MG INJ) 4 mg Q6H PRN IV NAUSEA/VOMITING 08/08/24 23:00 09/07/24 22:59 Pantoprazole Sodium (PROTonix 40MG INJ) 40 mg DAILY IVP 08/09/24 09:00 09/08/24 08:59 08/11/24 09:01 40 MG Piperacillin Sod/ Tazobactam Sod 50 ml @ 12.5 mls/hr Q8H IV 08/09/24 03:00 08/19/24 02:59 08/11/24 03:56 12.5 MLS/HR Potassium Chloride 100 ml @ 50 mls/hr AD PRN IV POTASSIUM PROTOCOL 08/08/24 23:00 09/07/24 22:59 08/10/24 21:12 50 MLS/HR Potassium Chloride 100 ml @ 100 mls/hr AD PRN IV POTASSIUM PROTOCOL 08/09/24 07:00 09/08/24 06:59 08/09/24 23:41 100 MLS/HR Sodium Chloride 1,000 ml @ 125 mls/hr Q8H IV 08/10/24 06:00 09/09/24 05:59 08/10/24 21:20 125 MLS/HR Sodium Chloride 1,000 ml @ 150 mls/hr Q6H40M IV 08/08/24 23:00 08/10/24 05:40 DC 08/09/24 05:46 150 MLS/HR DIAGNOSTICS / RADIOLOGY: [ ] ASSESSMENT: Gastric outlet obstruction/bowel obstruction, [place] Hiatal hernia, POA Intractable nausea and vomiting POA Severe dehydration POA Acute kidney injury Elevated troponin R/O NSTEMI POA Uncontrolled diabetes POA Metabolic alkalosis POA Hypokalemia POA Sepsis due to UTI POA Acute urinary tract infection POA Large hiatal per CT POA PLAN: Continue PCCU Continue nothing by mouth Insert NG tube to intermittent suction Continue NS @ 150 ml / hr x2 bags and re evaluate Continue on Zosyn IV for empiric coverage Continue Protonix 40 mg IV daily for GI prophylaxis Continue Lovenox 80 mg subQ Give 300mg aspirin suppository CT Abdomen with oral contrast today Continue insulin sliding scale AC & HS with hypoglycemia protocol Cardiology consulted, appreciate recommendations General surgery consulted, appreciate recommendations Disposition: Pending CT with oral contrast, General surgery recommendations CAROL ANN BOWEN MD Aug 11, 2024 10:37
[2024-08-11] MEDS ORDERED: DIATR MEGLU/DIATRIZOATE SODIUM 30 ML BOTTLE ONE (11:06)
--- NOTE | 2024-08-11 14:54 | HMCIMG ---
CT CHEST W/O CONTRAST HISTORY: Hiatal hernia COMPARISON: 03/20/2003 TECHNIQUE: Multiple sequential axial images of the chest were obtained from the thoracic inlet through upper abdomen. Patient was not given contrast through intravenous route. FINDINGS: Bipartite hernia is seen. There are small bilateral pleural effusions. No pericardial effusion is seen. There are mild interstitial fibrosis. Contrast is seen in the small bowel loops. Nasogastric tube is seen with distal tip in the stomach. There is no evidence of pneumothorax. There are normal size mediastinal and hilar lymph nodes. The heart is not enlarged. Degenerative changes of the thoracolumbar spine are present. There is no evidence of adrenal nodule. IMPRESSION: 1. Large hiatal hernia. Small bilateral pleural effusions. CT was performed with one or more following dose reduction techniques: automated exposure control, adjustment of the mA and kv according to patient's size, or use of a iterative reconstruction technique.
--- NOTE | 2024-08-11 14:56 | HMCIMG ---
CT ABDOMEN/PELVIS W/O CONTRAST HISTORY: Hyperlipidemia COMPARISON: 08/08/2009 TECHNIQUE: Multiple sequential axial images of the abdomen and pelvis were obtained from the dome of the diaphragm through symphysis pubis. Patient was not given contrast through intravenous route. Oral contrast was given. FINDINGS: Small bilateral pleural effusions are seen. Left-sided seen. Nasogastric tube is seen with distal tip in the hiatal hernia/stomach. There is no evidence of parenchymal disease or pulmonary nodule of the visualized lower lungs. Degenerative changes of the thoracolumbar spine are present. The heart is not enlarged. Small periumbilical hernia is suspected. No bowel obstruction. Contrast is seen in the rectum. Uterus is prominent related to fibroid uterus. The liver, spleen, adrenal glands and pancreas are unremarkable. There is no evidence of hydronephrosis bilaterally. No evidence of renal stone is seen. Fecal material is seen in the colon. There are normal size retroperitoneal and mesenteric lymph nodes. No ascites is seen. Appendix is not well-visualized. Pelvic sidewalls are symmetric bilaterally. Bladder is well distended without wall thickening. IMPRESSION: 1. Hiatal hernia. Small bilateral pleural effusions. Small periumbilical hernia with fat content. No bowel obstruction. CT was performed with one or more following dose reduction techniques: automated exposure control, adjustment of the mA and kv according to patient's size, or use of a iterative reconstruction technique.
--- NOTE | 2024-08-11 16:10 | NUR ---
NGT REMOVED, TOLERATED WELL. DR. ESPINO AT BEDSIDE.
--- NOTE | 2024-08-11 16:12 | PN ---
Patient with large hiatal hernia. Today has only had 50 mL out of the NG tube. Had the CT with oral contrast and tolerated the oral contrast fairly well had very minimal nausea. Had a large bowel movement just now. Physical exam patient alert and oriented x3 no respiratory distress cardiovascular regular rhythm abdomen is soft not distended not tender NG tube with minimal to no output assessment and plan remove NG tube and start patient on a full liquid diet. Advance diet slowly as tolerated to a soft GI. If tolerated okay to discharge home. And we will plan for an outpatient hiatal hernia repair. Discussed this with the patient and she agrees to proceed. Vitals/Labs Vital Signs Date Time Temp Pulse Resp B/P (MAP) Pulse Ox O2 Delivery O2 Flow Rate FiO2 08/11/24 11:56 98.8 80 18 180/95 95 Room Air 08/11/24 07:26 21 08/10/24 20:00 0 Laboratory Tests 08/11/24 03:40 Medications Current Medications Piperacillin Sod/ Tazobactam Sod 3.375 gm ONCE ONCE IV Last administered on 08/08/24at 19:33; Start 08/08/24 at 19:30; Stop 08/08/24 at 19:31; Status DC Sodium Chloride 1,000 ml @ 0 mls/hr ONCE ONCE IV Last administered on 08/08/24at 19:51; Start 08/08/24 at 20:00; Stop 08/08/24 at 20:01; Status DC Ondansetron HCl 4 mg ONCE ONCE IVP Last administered on 08/08/24at 19:51; Start 08/08/24 at 20:00; Stop 08/08/24 at 20:01; Status DC Albuterol 1 UDVIAL ONCE ONCE IH Last administered on 08/08/24at 21:37; Start 08/08/24 at 21:30; Stop 08/08/24 at 21:31; Status DC Methylprednisolone Sodium Succinate 125 mg ONCE ONCE IVP Last administered on 08/08/24at 21:22; Start 08/08/24 at 21:30; Stop 08/08/24 at 21:31; Status DC Ondansetron HCl 4 mg Q6H PRN IV; Start 08/08/24 at 23:00; Stop 09/07/24 at 22:59 Albuterol 1 udvial [id number] IH Last administered on 08/09/24at 06:37; Start 08/09/24 at 02:00; Stop 08/09/24 at 06:43; Status DC Piperacillin Sod/ Tazobactam Sod 50 ml @ 12.5 mls/hr Q8H IV Last administered on 08/11/24at 11:17; Start 08/09/24 at 03:00; Stop 08/19/24 at 02:59 Sodium Chloride 1,000 ml @ 150 mls/hr Q6H40M IV Last administered on 08/09/24at 05:46; Start 08/08/24 at 23:00; Stop 08/10/24 at 05:40; Status DC Enoxaparin Sodium 30 mg DAILY SQ; Start 08/09/24 at 09:00; Stop 08/08/24 at 23:29; Status DC Pantoprazole Sodium 40 mg DAILY IVP Last administered on 08/11/24at 09:01; Start 08/09/24 at 09:00; Stop 09/08/24 at 08:59 Promethazine HCl 12.5 mg ONCE ONCE IM Last administered on 08/08/24at 23:18; Start 08/08/24 at 23:00; Stop 08/08/24 at 23:14; Status DC Enoxaparin Sodium 80 mg ONCE ONCE SQ Last administered on 08/09/24at 00:02; Start 08/08/24 at 23:00; Stop 08/08/24 at 23:35; Status DC Aspirin 81 mg DAILY PO; Start 08/09/24 at 09:00; Stop 09/08/24 at 08:59 Magnesium Sulfate 50 ml @ 0 mls/hr PROTOCOL PRN IV; Start 08/08/24 at 23:00; Stop 09/07/24 at 22:59 Potassium Chloride 100 ml @ 50 mls/hr AD PRN IV Last administered on 08/10/24at 21:12; Start 08/08/24 at 23:00; Stop 09/07/24 at 22:59 Albuterol 1 udvial [id number] PRN IH; Start 08/09/24 at 07:00; Stop 09/08/24 at 01:59 Potassium Chloride 100 ml @ 100 mls/hr AD PRN IV Last administered on 08/09/24at 23:41; Start 08/09/24 at 07:00; Stop 09/08/24 at 06:59 Aspirin 300 mg ONCE ONCE NV Last administered on 08/09/24at 14:32; Start 08/09/24 at 12:30; Stop 08/09/24 at 12:35; Status DC Metoclopramide HCl 1.25 mg ONCE ONCE IVP; Start 08/10/24 at 00:00; Stop 08/10/24 at 00:01; Status DC Metoprolol Tartrate 1.25 mg ONCE ONCE IV Last administered on 08/10/24at 00:13; Start 08/10/24 at 00:15; Stop 08/10/24 at 00:16; Status DC Sodium Chloride 1,000 ml @ 125 mls/hr Q8H IV Last administered on 08/11/24at 12:07; Start 08/10/24 at 06:00; Stop 09/09/24 at 05:59 Lactated Ringer's 525 ml @ 175 mls/hr ONCE ONCE IV Last administered on 08/10/24at 05:41; Start 08/10/24 at 06:00; Stop 08/10/24 at 08:59; Status DC Labetalol HCl 10 mg Q6H PRN IV Last administered on 08/10/24at 17:32; Start 08/10/24 at 09:00; Stop 08/10/24 at 19:04; Status DC Metoprolol Tartrate 5 mg Q4H PRN IV; Start 08/10/24 at 19:30; Stop 09/09/24 at 19:29 Diatrizoate Meglum/ Diatrizoate Sod 30 ml STK-MED ONCE .ROUTE; Start 08/11/24 at 11:06; Stop 08/11/24 at 11:06; Status DC KEYONNA ESPINO MD Aug 11, 2024 16:12
[2024-08-11] MEDS: metoPROLOL tartRATE 1 MG/ML 5ML VIAL IV PRN (17:18)
--- NOTE | 2024-08-11 20:47 | PN ---
PROBLEM LIST: * Type 2 PA, in the setting of SBO. * 2D echo, EF of 60-65%. * Hypertension. * Dyslipidemia. * Osteoarthritis. INTERVAL HISTORY: The patient is resting comfortably in bed. She feels much better than yesterday. Denies any abdominal pain at this time. Nausea is much less. No fever, reports of bleeding. A 2D echo showed preserved EF 60-65%. PHYSICAL EXAMINATION: GENERAL: Early elderly female in no distress, resting comfortably. VITAL SIGNS: Temperature 99, pulse 96, respirations 19, blood pressure 172/80. HEENT: No nasal discharge or icterus. NG tube in place. CARDIOVASCULAR: Rhythm and rate regular. No murmurs. No edema. RESPIRATORY: Grossly clear. No crackles or wheezing. GASTROINTESTINAL: Soft, nontender to light touch. EXTREMITIES: No amputations or deformities. Range of motion grossly normal. NEUROLOGIC AND PSYCHIATRY: Awake, alert and oriented x 3, cooperative and pleasant. No tremors or slurring. LABORATORY DATA: White count down to 19.6 from 22.6 on admission. Chemistry is generally unremarkable. RADIOLOGY: A 2D echocardiogram as above describing preserved EF. PLAN: Surgery is attempting conservative therapy with NG tube. Troponins are secondary to a type 2 process and not an acute cardiac event. Echo showed preserved EF. Blood pressure has been elevated. We will resume her home metoprolol. Stop aspirin, in case she does need surgery. If she is not able to take p.o., we will start scheduled IV metoprolol. The patient can be discharged from our standpoint with outpatient followup. If she does need abdominal surgery, she should be considered a low to intermediate risk to proceed with this. TID: [id number] RECEIPT: [id number]
[2024-08-11] MEDS: MELATONIN 5 MG TABLET PO ONE (22:25)
[2024-08-12] VITALS (14 sets, daily range): BP systolic 152–185; BP diastolic 69–96; PULSE 72–88; RESP 17–20; TEMP 99–99.8; O2SAT 93–96
[2024-08-12 04:16] LABS: BASOPHILS # (AUTO) 0.02 K/uL (0.00-0.20); BASOPHILS % (AUTO) 0.2 % (0.0-5.0); EOSINOPHILS # (AUTO) 0.09 K/uL (0.00-0.70); EOSINOPHILS % (AUTO) 0.8 % (0.0-8.0); HEMATOCRIT 33.4 % (36-48); IMMATURE GRANULOCYTE ABSOLUTE 0.18 K/uL (0-1); LYMPHOCYTES # (AUTO) 1.6 K/uL (1.0-4.8); LYMPHOCYTES % (AUTO) 14.5 % (21.0-51.0); MEAN CORPUSCULAR HEMOGLOBIN 30.1 pg (27.0-33.0); MEAN CORPUSCULAR HGB CONC 33.2 g/dL (32.0-36.0); MEAN CORPUSCULAR VOLUME 90.5 fL (79-99); MONOCYTES # (AUTO) 1.2 K/uL (0.1-1.0); MONOCYTES % (AUTO) 10.7 % (3.0-13.0); NEUTROPHILS % (AUTO) 72.2 % (40.0-77.0); PLATELET COUNT (AUTO) 182 K/uL (130-400); RED BLOOD CELL COUNT(AUTO) 3.69 MIL/uL (4.00-5.50); RED CELL DISTRIBUTION WIDTH 13.3 % (11.0-15.5); WHITE BLOOD COUNT (AUTO) 11.1 K/uL (4.8-10.8)
[2024-08-12 04:22] LABS: CREATININE 0.5 mg/dL (0.5-1.0); POTASSIUM 3.6 mmol/L (3.5-5.1)
--- NOTE | 2024-08-12 09:30 | PN ---
[facility] PROGRESS NOTE Date of Service: Aug 12, 2024 Time of Service: 09:27 SUBJECTIVE: 08/09 patient seen at bedside, no acute events overnight. She continues with nausea, imaging reviewed once again showing a large distended stomach full of fluid and a recognizable hiatal hernia. The pylorus and 1st part of the duodenum are in the thoracic cavity and the duodenum passes through the hiatal hernia into the abdominal cavity. This narrowing along with they distended stomach seems to be causing a gastric outlet obstruction, NG tube will be inserted and patient will be decompressed. General surgery will be consulted for further recommendations. Patient has slow up trend of troponins, she is NPO and can not take normal ACS medications, we will give a rectal suppository of aspirin. Further recommendations per Cardiology 08/10 patient seen at bedside, no acute events overnight. NG tube output proximally 1600 cc, patient states she is feeling slightly better. She continues on IV fluids, General surgery recommended conservative management we will continue decompression and IV fluids. Further recommendations per General surgery. She has been hypertensive, we will start p.r.n. hydralazine and labetalol as she can not take p.o. medications. WBC improved from 21.4 down to 19.6, potassium improved from 2.5 up to 3.5, remainder of her labs are relatively unremarkable. 08/11 patient seen at bedside, no acute events overnight. General surgery recommending CT of the abdomen with oral contrast today to see if contrast goes through. NG tube will be clamped prior to the procedure so that contrast as a chance to go through. 08/12 blood pressure 174/77, afebrile, saturating 93-95% on room air. Hemoglobin 11.1, hematocrit 33.4, WBC 11.1, currently trending down. CT of the abdomen showing hiatal hernia, small bilateral pleural effusion, small periumbilical hernia with fat content, no bowel obstruction. CT chest large hiatal hernia, small bilateral pleural effusion. Surgical input noted and appreciated, diet has been advanced. Plan for outpatient hiatal hernia repair. REVIEW OF SYSTEMS 12 point ROS negative unless noted in HPI PHYSICAL EXAM GENERAL APPEARANCE: The patient is awake, alert, and oriented, in no acute cardiopulmonary distress. NEUROLOGICAL: Cranial nerves II-XII grossly intact. Motor is 5/5 in bilateral upper and lower extremities proximal to distal. No sensory deficits. HEENT: Face is symmetric. Pupils are equal and reactive. Extraocular movements are intact. NECK: Supple. No JVD. No thyromegaly. No submental, submandibular, pre- /postauricular, occipital or supraclavicular lymphadenopathy. CHEST: Normal chest expansion. No Telemetry. LUNGS: Absence of any rales, rhonchi or any wheezing. CARDIOVASCULAR: Regular. S1 and S2 normal. No appreciable rubs, murmurs or gallops. ABDOMEN: Soft, nontender, and nondistended. There is no rebound, voluntary guarding, or rigidity. : Deferred. No Zuluaga. EXTREMITIES: Non-edematous and not cyanotic. No clubbing. Good capillary refill. SKIN: No skin breakdown. Vital Signs (last 8hr) Date Time Temp Pulse Resp B/P (MAP) Pulse Ox O2 Delivery O2 Flow Rate FiO2 08/12/24 09:16 80 174/77 08/12/24 07:00 99.1 80 18 174/77 93 Room Air 08/12/24 06:54 72 20 N/A Room Air 21 08/12/24 06:39 88 168/92 08/12/24 04:00 99.0 83 18 168/92 95 Room Air 08/12/24 03:39 84 20 N/A Room Air 21 LABS: Laboratory: Test 08/12/24 03:52 08/11/24 04:59 Range/Units White Blood Count 11.1 H 4.8-10.8 K/uL Red Blood Count 3.69 L 4.00-5.50 MIL/uL Hemoglobin 11.1 L 12.0-16.0 g/dL Hematocrit 33.4 L 36-48 % Mean Corpuscular Volume 90.5 79-99 fL Mean Corpuscular Hemoglobin 30.1 27.0-33.0 pg Mean Corpuscular Hemoglobin Concent 33.2 32.0-36.0 g/dL Red Cell Distribution Width 13.3 11.0-15.5 % Platelet Count 182 130-400 K/uL Mean Platelet Volume 9.5 7.5-10.5 fL Immature Granulocyte % (Auto) 1.6 H 0-1 % Neutrophils (%) (Auto) 72.2 40.0-77.0 % Lymphocytes (%) (Auto) 14.5 L 21.0-51.0 % Monocytes (%) (Auto) 10.7 3.0-13.0 % Eosinophils (%) (Auto) 0.8 0.0-8.0 % Basophils (%) (Auto) 0.2 0.0-5.0 % Neutrophils # (Auto) 8.0 H 1.8-7.7 K/uL Lymphocytes # (Auto) 1.6 1.0-4.8 K/uL Monocytes # (Auto) 1.2 H 0.1-1.0 K/uL Eosinophils # (Auto) 0.09 0.00-0.70 K/uL Basophils # (Auto) 0.02 0.00-0.20 K/uL Absolute Immature Granulocyte (auto 0.18 0-1 K/uL Nucleated Red Blood Cells 0.0 0.0-0.19 % Sodium Level 139 136-145 mmol/L Potassium Level 3.6 3.5-5.1 mmol/L Chloride Level 103 101-111 mmol/L Carbon Dioxide Level 29 21-32 mmol/L Blood Urea Nitrogen 11 7-18 mg/dL Creatinine 0.5 0.5-1.0 mg/dL Glomerular Filtration Rate Calc 103 >90 mL/min Random Glucose 87 70-105 mg/dL Total Calcium 8.1 L 8.5-10.1 mg/dL Whole Blood Glucose 72 70-110 MG/DL Current Medications Medications (Trade) Dose Ordered Sig/Jie Route PRN Reason Start Time Stop Time Status Last Admin Dose Admin Albuterol (DUOneb) 1 udvial [id number] IH 08/09/24 02:00 08/09/24 06:43 DC 08/09/24 06:37 1 UDVIAL Albuterol (DUOneb) 1 udvial [id number] PRN IH SHORTNESS OF BREATH 08/09/24 07:00 09/08/24 01:59 Aspirin (Aspirin 81mg Ec Tab) 81 mg DAILY PO 08/09/24 09:00 09/08/24 08:59 08/12/24 09:16 81 MG Enoxaparin Sodium (Lovenox) 30 mg DAILY SQ 08/09/24 09:00 08/08/24 23:29 DC Labetalol HCl (TRANdate 20MG SYG) 10 mg Q6H PRN IV IF SBP GREATER THAN 160 08/10/24 09:00 08/10/24 19:04 DC 08/10/24 17:32 10 MG Magnesium Sulfate 50 ml @ 0 mls/hr PROTOCOL PRN IV OTHER [SEE ORDER COMMENTS] 08/08/24 23:00 09/07/24 22:59 Metoprolol Tartrate (loprESSOR) 5 mg Q4H PRN IV ADMINISTER FOR SBP > 160 08/10/24 19:30 09/09/24 19:29 08/12/24 09:16 5 MG Ondansetron HCl (zoFRAN 4MG INJ) 4 mg Q6H PRN IV NAUSEA/VOMITING 08/08/24 23:00 09/07/24 22:59 Pantoprazole Sodium (PROTonix 40MG INJ) 40 mg DAILY IVP 08/09/24 09:00 09/08/24 08:59 08/12/24 09:16 40 MG Piperacillin Sod/ Tazobactam Sod 50 ml @ 12.5 mls/hr Q8H IV 08/09/24 03:00 08/19/24 02:59 08/12/24 02:55 12.5 MLS/HR Potassium Chloride 100 ml @ 50 mls/hr AD PRN IV POTASSIUM PROTOCOL 08/08/24 23:00 09/07/24 22:59 08/12/24 05:04 50 MLS/HR Potassium Chloride 100 ml @ 100 mls/hr AD PRN IV POTASSIUM PROTOCOL 08/09/24 07:00 09/08/24 06:59 08/09/24 23:41 100 MLS/HR Sodium Chloride 1,000 ml @ 125 mls/hr Q8H IV 08/10/24 06:00 09/09/24 05:59 08/12/24 05:04 125 MLS/HR Sodium Chloride 1,000 ml @ 150 mls/hr Q6H40M IV 08/08/24 23:00 08/10/24 05:40 DC 08/09/24 05:46 150 MLS/HR DIAGNOSTICS / RADIOLOGY: [ ] ASSESSMENT: Gastric outlet obstruction/bowel obstruction, [place] Hiatal hernia, POA Intractable nausea and vomiting POA Severe dehydration POA Acute kidney injury Elevated troponin R/O NSTEMI POA Uncontrolled diabetes POA Metabolic alkalosis POA Hypokalemia POA Sepsis due to UTI POA Acute urinary tract infection POA Large hiatal per CT POA PLAN: Continue PCCU GI soft diet Continue to follow surgical input and recommendation Continue NS @ 150 ml / hr x2 bags and re evaluate Continue on Zosyn IV for empiric coverage Continue Protonix 40 mg IV daily for GI prophylaxis Continue Lovenox 80 mg subQ Give 300mg aspirin suppository CT Abdomen with oral contrast today Continue insulin sliding scale AC & HS with hypoglycemia protocol Cardiology input noted and appreciated, troponin secondary to type 2 process and not active cardiac event, echo shows preserved ejection fraction. GLORY YBARRA MD Aug 12, 2024 09:30
--- NOTE | 2024-08-12 14:53 | PN ---
This is a 64-year-old female with a large hiatal hernia with concerns of obstruction which appears to have resolved Interval history: This 64-year-old female seen in telemetry resting No acute events reported overnight Patient tolerating diet Nursing reporting patient with low appetite but patient reporting disinterest in food labor No abdominal pain reported Physical exam General: Awake alert and oriented Heart: Regular rate and rhythm} Lungs: Clear to auscultation no distress Abdomen: [Soft, nontender, nondistended Assessment : This is a 64-year-old female with concerns of hiatal hernia Plan: This point in time patient is still wishes to follow up in outpatient setting for elective procedure Patient to remain overnight for observation as per hospitalist recommendation Patient to be cleared from surgical standpoint likely tomorrow for discharge if she continues to tolerate diet Dr. Garduno to be updated in patient's status. Thank you Vitals/Labs Vital Signs Date Time Temp Pulse Resp B/P (MAP) Pulse Ox O2 Delivery O2 Flow Rate FiO2 08/12/24 14:05 99.7 86 19 158/69 95 Room Air 08/12/24 06:54 21 08/11/24 19:44 0 Laboratory Tests 08/12/24 03:52 Medications Current Medications Piperacillin Sod/ Tazobactam Sod 3.375 gm ONCE ONCE IV Last administered on 08/08/24at 19:33; Start 08/08/24 at 19:30; Stop 08/08/24 at 19:31; Status DC Sodium Chloride 1,000 ml @ 0 mls/hr ONCE ONCE IV Last administered on 08/08/24at 19:51; Start 08/08/24 at 20:00; Stop 08/08/24 at 20:01; Status DC Ondansetron HCl 4 mg ONCE ONCE IVP Last administered on 08/08/24at 19:51; Start 08/08/24 at 20:00; Stop 08/08/24 at 20:01; Status DC Albuterol 1 UDVIAL ONCE ONCE IH Last administered on 08/08/24at 21:37; Start 08/08/24 at 21:30; Stop 08/08/24 at 21:31; Status DC Methylprednisolone Sodium Succinate 125 mg ONCE ONCE IVP Last administered on 08/08/24at 21:22; Start 08/08/24 at 21:30; Stop 08/08/24 at 21:31; Status DC Ondansetron HCl 4 mg Q6H PRN IV; Start 08/08/24 at 23:00; Stop 09/07/24 at 22:59 Albuterol 1 udvial [id number] IH Last administered on 08/09/24at 06:37; Start 08/09/24 at 02:00; Stop 08/09/24 at 06:43; Status DC Piperacillin Sod/ Tazobactam Sod 50 ml @ 12.5 mls/hr Q8H IV Last administered on 08/12/24at 12:09; Start 08/09/24 at 03:00; Stop 08/19/24 at 02:59 Sodium Chloride 1,000 ml @ 150 mls/hr Q6H40M IV Last administered on 08/09/24at 05:46; Start 08/08/24 at 23:00; Stop 08/10/24 at 05:40; Status DC Enoxaparin Sodium 30 mg DAILY SQ; Start 08/09/24 at 09:00; Stop 08/08/24 at 23:29; Status DC Pantoprazole Sodium 40 mg DAILY IVP Last administered on 08/12/24at 09:16; Start 08/09/24 at 09:00; Stop 09/08/24 at 08:59 Promethazine HCl 12.5 mg ONCE ONCE IM Last administered on 08/08/24at 23:18; Start 08/08/24 at 23:00; Stop 08/08/24 at 23:14; Status DC Enoxaparin Sodium 80 mg ONCE ONCE SQ Last administered on 08/09/24at 00:02; Start 08/08/24 at 23:00; Stop 08/08/24 at 23:35; Status DC Aspirin 81 mg DAILY PO Last administered on 08/12/24at 09:16; Start 08/09/24 at 09:00; Stop 09/08/24 at 08:59 Magnesium Sulfate 50 ml @ 0 mls/hr PROTOCOL PRN IV; Start 08/08/24 at 23:00; Stop 09/07/24 at 22:59 Potassium Chloride 100 ml @ 50 mls/hr AD PRN IV Last administered on 08/12/24at 05:04; Start 08/08/24 at 23:00; Stop 09/07/24 at 22:59 Albuterol 1 udvial [id number] PRN IH; Start 08/09/24 at 07:00; Stop 09/08/24 at 01:59 Potassium Chloride 100 ml @ 100 mls/hr AD PRN IV Last administered on 08/09/24at 23:41; Start 08/09/24 at 07:00; Stop 09/08/24 at 06:59 Aspirin 300 mg ONCE ONCE RI Last administered on 08/09/24at 14:32; Start 08/09/24 at 12:30; Stop 08/09/24 at 12:35; Status DC Metoclopramide HCl 1.25 mg ONCE ONCE IVP; Start 08/10/24 at 00:00; Stop 08/10/24 at 00:01; Status DC Metoprolol Tartrate 1.25 mg ONCE ONCE IV Last administered on 08/10/24at 00:13; Start 08/10/24 at 00:15; Stop 08/10/24 at 00:16; Status DC Sodium Chloride 1,000 ml @ 125 mls/hr Q8H IV Last administered on 08/12/24at 05:04; Start 08/10/24 at 06:00; Stop 09/09/24 at 05:59 Lactated Ringer's 525 ml @ 175 mls/hr ONCE ONCE IV Last administered on 08/10/24at 05:41; Start 08/10/24 at 06:00; Stop 08/10/24 at 08:59; Status DC Labetalol HCl 10 mg Q6H PRN IV Last administered on 08/10/24at 17:32; Start 08/10/24 at 09:00; Stop 08/10/24 at 19:04; Status DC Metoprolol Tartrate 5 mg Q4H PRN IV Last administered on 08/12/24at 09:16; Start 08/10/24 at 19:30; Stop 09/09/24 at 19:29 Diatrizoate Meglum/ Diatrizoate Sod 30 ml STK-MED ONCE .ROUTE; Start 08/11/24 at 11:06; Stop 08/11/24 at 11:06; Status DC Melatonin 5 mg ONCE ONCE PO Last administered on 08/11/24at 22:25; Start 08/11/24 at 22:00; Stop 08/11/24 at 22:01; Status DC KELSIE MONTGOMERY Jr. Aug 12, 2024 14:53
[2024-08-13] VITALS (7 sets, daily range): BP systolic 130–166; BP diastolic 69–85; PULSE 77–88; RESP 18–20; TEMP 97.9–98.9; O2SAT 96–97
--- NOTE | 2024-08-13 09:27 | PN ---
[facility] PROGRESS NOTE Date of Service: Aug 13, 2024 Time of Service: 09:25 SUBJECTIVE: 08/09 patient seen at bedside, no acute events overnight. She continues with nausea, imaging reviewed once again showing a large distended stomach full of fluid and a recognizable hiatal hernia. The pylorus and 1st part of the duodenum are in the thoracic cavity and the duodenum passes through the hiatal hernia into the abdominal cavity. This narrowing along with they distended stomach seems to be causing a gastric outlet obstruction, NG tube will be inserted and patient will be decompressed. General surgery will be consulted for further recommendations. Patient has slow up trend of troponins, she is NPO and can not take normal ACS medications, we will give a rectal suppository of aspirin. Further recommendations per Cardiology 08/10 patient seen at bedside, no acute events overnight. NG tube output proximally 1600 cc, patient states she is feeling slightly better. She continues on IV fluids, General surgery recommended conservative management we will continue decompression and IV fluids. Further recommendations per General surgery. She has been hypertensive, we will start p.r.n. hydralazine and labetalol as she can not take p.o. medications. WBC improved from 21.4 down to 19.6, potassium improved from 2.5 up to 3.5, remainder of her labs are relatively unremarkable. 08/11 patient seen at bedside, no acute events overnight. General surgery recommending CT of the abdomen with oral contrast today to see if contrast goes through. NG tube will be clamped prior to the procedure so that contrast as a chance to go through. 08/12 blood pressure 174/77, afebrile, saturating 93-95% on room air. Hemoglobin 11.1, hematocrit 33.4, WBC 11.1, currently trending down. CT of the abdomen showing hiatal hernia, small bilateral pleural effusion, small periumbilical hernia with fat content, no bowel obstruction. CT chest large hiatal hernia, small bilateral pleural effusion. Surgical input noted and appreciated, diet has been advanced. Plan for outpatient hiatal hernia repair. 08/13 patient blood pressure 166/85, rest of vital signs are unremarkable. Leukocytosis improving, WBC today 11.1, hemoglobin 11.1, hematocrit 33.4, platelet count of 182. Potassium 3.6. Results of urine culture reviewed, positive for E coli, sensitive to multiple antibiotics, but resistant to ciprofloxacin. We will give potassium chloride 40 mEq p.o., change Zosyn IV to Rocephin 1 g IV daily, continue to follow up PT input and recommendation. Follow repeat CBC today, stable patient to be discharged home today. She denies melena, no hematochezia, no hematemesis, no hematuria. REVIEW OF SYSTEMS 12 point ROS negative unless noted in HPI PHYSICAL EXAM GENERAL APPEARANCE: The patient is awake, alert, and oriented, in no acute cardiopulmonary distress. NEUROLOGICAL: Cranial nerves II-XII grossly intact. Motor is 5/5 in bilateral upper and lower extremities proximal to distal. No sensory deficits. HEENT: Face is symmetric. Pupils are equal and reactive. Extraocular movements are intact. NECK: Supple. No JVD. No thyromegaly. No submental, submandibular, pre- /postauricular, occipital or supraclavicular lymphadenopathy. CHEST: Normal chest expansion. No Telemetry. LUNGS: Absence of any rales, rhonchi or any wheezing. CARDIOVASCULAR: Regular. S1 and S2 normal. No appreciable rubs, murmurs or gallops. ABDOMEN: Soft, nontender, and nondistended. There is no rebound, voluntary guarding, or rigidity. : Deferred. No [place]. EXTREMITIES: Non-edematous and not cyanotic. No clubbing. Good capillary refill. SKIN: No skin breakdown. Vital Signs (last 8hr) Date Time Temp Pulse Resp B/P (MAP) Pulse Ox O2 Delivery O2 Flow Rate FiO2 08/13/24 08:00 98.6 84 18 166/85 96 Room Air 08/13/24 06:54 87 18 N/A Room Air 21 08/13/24 03:03 98.2 77 18 142/74 95 Room Air LABS: Laboratory: Test 08/12/24 03:52 Range/Units White Blood Count 11.1 H 4.8-10.8 K/uL Red Blood Count 3.69 L 4.00-5.50 MIL/uL Hemoglobin 11.1 L 12.0-16.0 g/dL Hematocrit 33.4 L 36-48 % Mean Corpuscular Volume 90.5 79-99 fL Mean Corpuscular Hemoglobin 30.1 27.0-33.0 pg Mean Corpuscular Hemoglobin Concent 33.2 32.0-36.0 g/dL Red Cell Distribution Width 13.3 11.0-15.5 % Platelet Count 182 130-400 K/uL Mean Platelet Volume 9.5 7.5-10.5 fL Immature Granulocyte % (Auto) 1.6 H 0-1 % Neutrophils (%) (Auto) 72.2 40.0-77.0 % Lymphocytes (%) (Auto) 14.5 L 21.0-51.0 % Monocytes (%) (Auto) 10.7 3.0-13.0 % Eosinophils (%) (Auto) 0.8 0.0-8.0 % Basophils (%) (Auto) 0.2 0.0-5.0 % Neutrophils # (Auto) 8.0 H 1.8-7.7 K/uL Lymphocytes # (Auto) 1.6 1.0-4.8 K/uL Monocytes # (Auto) 1.2 H 0.1-1.0 K/uL Eosinophils # (Auto) 0.09 0.00-0.70 K/uL Basophils # (Auto) 0.02 0.00-0.20 K/uL Absolute Immature Granulocyte (auto 0.18 0-1 K/uL Nucleated Red Blood Cells 0.0 0.0-0.19 % Sodium Level 139 136-145 mmol/L Potassium Level 3.6 3.5-5.1 mmol/L Chloride Level 103 101-111 mmol/L Carbon Dioxide Level 29 21-32 mmol/L Blood Urea Nitrogen 11 7-18 mg/dL Creatinine 0.5 0.5-1.0 mg/dL Glomerular Filtration Rate Calc 103 >90 mL/min Random Glucose 87 70-105 mg/dL Total Calcium 8.1 L 8.5-10.1 mg/dL Current Medications Medications (Trade) Dose Ordered Sig/Jie Route PRN Reason Start Time Stop Time Status Last Admin Dose Admin Albuterol (DUOneb) 1 udvial [id number] IH 08/09/24 02:00 08/09/24 06:43 DC 08/09/24 06:37 1 UDVIAL Albuterol (DUOneb) 1 udvial [id number] PRN IH SHORTNESS OF BREATH 08/09/24 07:00 09/08/24 01:59 Aspirin (Aspirin 81mg Ec Tab) 81 mg DAILY PO 08/09/24 09:00 09/08/24 08:59 6/2/25 09:16 81 MG Enoxaparin Sodium (Lovenox) 30 mg DAILY SQ 08/09/24 09:00 08/08/24 23:29 DC Labetalol HCl (TRANdate 20MG SYG) 10 mg Q6H PRN IV IF SBP GREATER THAN 160 08/10/24 09:00 08/10/24 19:04 DC 08/10/24 17:32 10 MG Magnesium Sulfate 50 ml @ 0 mls/hr PROTOCOL PRN IV OTHER [SEE ORDER COMMENTS] 08/08/24 23:00 09/07/24 22:59 Metoprolol Tartrate (loprESSOR) 5 mg Q4H PRN IV ADMINISTER FOR SBP > 160 08/10/24 19:30 09/09/24 19:29 08/12/24 09:16 5 MG Ondansetron HCl (zoFRAN 4MG INJ) 4 mg Q6H PRN IV NAUSEA/VOMITING 08/08/24 23:00 09/07/24 22:59 Pantoprazole Sodium (PROTonix 40MG INJ) 40 mg DAILY IVP 08/09/24 09:00 09/08/24 08:59 08/12/24 09:16 40 MG Piperacillin Sod/ Tazobactam Sod 50 ml @ 12.5 mls/hr Q8H IV 08/09/24 03:00 08/19/24 02:59 08/13/24 02:41 12.5 MLS/HR Potassium Chloride 100 ml @ 50 mls/hr AD PRN IV POTASSIUM PROTOCOL 08/08/24 23:00 09/07/24 22:59 08/12/24 05:04 50 MLS/HR Potassium Chloride 100 ml @ 100 mls/hr AD PRN IV POTASSIUM PROTOCOL 08/09/24 07:00 09/08/24 06:59 08/09/24 23:41 100 MLS/HR Sodium Chloride 1,000 ml @ 125 mls/hr Q8H IV 08/10/24 06:00 08/12/24 15:58 DC 08/12/24 05:04 125 MLS/HR Sodium Chloride 1,000 ml @ 150 mls/hr Q6H40M IV 08/08/24 23:00 08/10/24 05:40 DC 08/09/24 05:46 150 MLS/HR DIAGNOSTICS / RADIOLOGY: [ ] ASSESSMENT: Gastric outlet obstruction/bowel obstruction, [place] Hiatal hernia, POA Intractable nausea and vomiting POA Severe dehydration POA Acute kidney injury Elevated troponin R/O NSTEMI POA Uncontrolled diabetes POA Metabolic alkalosis POA Hypokalemia POA Sepsis due to UTI POA Acute urinary tract infection POA Large hiatal per CT POA PLAN: Leukocytosis improving, WBC today 11.1, hemoglobin 11.1, hematocrit 33.4, platelet count of 182. Potassium 3.6. Results of urine culture reviewed, positive for E coli, sensitive to multiple antibiotics, but resistant to ciprofloxacin. We will give potassium chloride 40 mEq p.o., continue to follow up PT input and recommendation. Follow repeat CBC today, if stable, patient to be discharged home today. NEURO: Minimize central acting medications as possible. Fall Precautions. Well lighted room through the day and minimize interruptions through the night to prevent acute delirium. PULMONARY: Supplemental 02 as needed BiPAP as necessary, for respiratory distress Titrate Fio2 to keep Spo2 > or = 90% DuoNebs and CPT as needed IS hourly while awake for pulmonary hygiene prn Out of bed to chair as tolerated Maintain aspiration precautions at all times CARDIOVASCULAR: Follow hemodynamics. Vital signs per facility protocol GI & NUTRITION: Continue nutritional support Aspirations precautions Prokinetic agents and laxatives as needed KIDNEYS & ELECTROLYTES: Strict monitoring of intake and output Daily weights Avoid nephrotoxic agents Monitor electrolytes and replace as needed Goal urine output of 30mL/hr or 0.5mL/kg/hr Medications to be dosed according to renal function. Avoid contrast if possible ENDOCRINE: Maintain blood glucose between 100-180 at all times. Insulin sliding scale for blood glucose management Hypoglycemia and hyperglycemia protocol in place INFECTIOUS DISEASE: Trend temperature, WBC and procalcitonin level Follow cultures, deescalate antibiotics as soon as possible. Panculture if new onset fever HEMATOLOGY & COAGULATION: Monitor H&H. Keep Hgb > 7 Transfuse 1 unit of PRBC for Hgb < 7 Transfuse 1 pack of platelets of platelets < 20, 000 Watch for any signs and symptoms of bleeding SKIN: Pressure ulcer prevention per facility protocol Specialty mattress as needed ORTHO/REHAB Continue PT/OT PRN: MEDICATIONS Tylenol 650 mg po every 4 hrs for fever zofran 4 mg IV every 6 hrs for n/v Hydralazine 5 mg IV every 4 hrs systolic pressure > 160 bowel regiment: lactulose 20 gm PO BID PRN constipation Supportive measures: Continue GI and DVT prophylaxis Disposition: Pending Improvement in clinical condition All questions answered time spent: > 35 min GLORY YBARRA MD Aug 13, 2024 09:27
[2024-08-13] MEDS: PoTASSium chloRIDE 20MEQ ER 20 MEQ ERTAB PO ONE (10:09)
[2024-08-13 12:28] LABS: BASOPHILS # (AUTO) 0.05 K/uL (0.00-0.20); BASOPHILS % (AUTO) 0.5 % (0.0-5.0); EOSINOPHILS % (AUTO) 1.8 % (0.0-8.0); HEMATOCRIT 36.8 % (36-48); IMMATURE GRANULOCYTE ABSOLUTE 0.38 K/uL (0-1); LYMPHOCYTES # (AUTO) 1.4 K/uL (1.0-4.8); LYMPHOCYTES % (AUTO) 12.9 % (21.0-51.0); MEAN CORPUSCULAR HEMOGLOBIN 29.7 pg (27.0-33.0); MEAN CORPUSCULAR HGB CONC 33.7 g/dL (32.0-36.0); MEAN CORPUSCULAR VOLUME 88.2 fL (79-99); MONOCYTES # (AUTO) 0.9 K/uL (0.1-1.0); NEUTROPHILS % (AUTO) 73.3 % (40.0-77.0); PLATELET COUNT (AUTO) 192 K/uL (130-400); RED BLOOD CELL COUNT(AUTO) 4.17 MIL/uL (4.00-5.50); RED CELL DISTRIBUTION WIDTH 13.2 % (11.0-15.5)
[2024-08-13 12:47] LABS: % IRON SATURATION 22.5 % (22-44)
[2024-08-14] VITALS: BP 143/82; PULSE 77; RESP 17; TEMP 98.1
[2024-08-14 04:00] VITALS: BP 131/47; PULSE 78; RESP 17; TEMP 97.7
[2024-08-14 04:55] LABS: HEMATOCRIT 32.7 % (36-48); MEAN CORPUSCULAR HEMOGLOBIN 30.1 pg (27.0-33.0); MEAN CORPUSCULAR HGB CONC 33.3 g/dL (32.0-36.0); MEAN CORPUSCULAR VOLUME 90.3 fL (79-99); RED BLOOD CELL COUNT(AUTO) 3.62 MIL/uL (4.00-5.50); RED CELL DISTRIBUTION WIDTH 13.2 % (11.0-15.5); WHITE BLOOD COUNT (AUTO) 10.1 K/uL (4.8-10.8)
[2024-08-14 05:06] LABS: ALBUMIN 2.3 g/dL (3.5-5.0); BILIRUBIN,TOTAL 0.6 mg/dL (0.2-1.0); CREATININE 0.6 mg/dL (0.5-1.0); MAGNESIUM 1.5 mg/dL (1.80-2.40); POTASSIUM 3.1 mmol/L (3.5-5.1); TOTAL PROTEIN, SERUM 5.9 g/dL (6.0-8.3)
[2024-08-14 08:01] VITALS: BP 145/80; PULSE 80; RESP 18; TEMP 97.8
--- NOTE | 2024-08-14 08:10 | NUR ---
[facility] DR. YBARRA NOTIFIED TO REVIEW AND RESUME.
[2024-08-14 08:25] VITALS: O2SAT 95
[2024-08-14] MEDS: IRON sUCROse COMPLEX 100 MG/5 ML VIAL IV SCH (08:25)
[2024-08-14] MEDS: MAGNESIUM 2GM PREMIX 50ML 50 ML IV PRN (08:36)
[2024-08-14] MEDS ORDERED: PoTASSium chl 10% ELIXIR 20MEQ 20 MEQ/15 ML UDCUP PO PRN (09:00)
[2024-08-14] MEDS ORDERED: ondanSETRON 4MG TABLET PO PRN (09:30)
--- NOTE | 2024-08-14 10:03 | PN ---
[facility] PROGRESS NOTE Date of Service: Aug 14, 2024 Time of Service: 10:01 SUBJECTIVE: 08/09 patient seen at bedside, no acute events overnight. She continues with nausea, imaging reviewed once again showing a large distended stomach full of fluid and a recognizable hiatal hernia. The pylorus and 1st part of the duodenum are in the thoracic cavity and the duodenum passes through the hiatal hernia into the abdominal cavity. This narrowing along with they distended stomach seems to be causing a gastric outlet obstruction, NG tube will be inserted and patient will be decompressed. General surgery will be consulted for further recommendations. Patient has slow up trend of troponins, she is NPO and can not take normal ACS medications, we will give a rectal suppository of aspirin. Further recommendations per Cardiology 08/10 patient seen at bedside, no acute events overnight. NG tube output proximally 1600 cc, patient states she is feeling slightly better. She continues on IV fluids, General surgery recommended conservative management we will continue decompression and IV fluids. Further recommendations per General surgery. She has been hypertensive, we will start p.r.n. hydralazine and labetalol as she can not take p.o. medications. WBC improved from 21.4 down to 19.6, potassium improved from 2.5 up to 3.5, remainder of her labs are relatively unremarkable. 08/11 patient seen at bedside, no acute events overnight. General surgery recommending CT of the abdomen with oral contrast today to see if contrast goes through. NG tube will be clamped prior to the procedure so that contrast as a chance to go through. 08/12 blood pressure 174/77, afebrile, saturating 93-95% on room air. Hemoglobin 11.1, hematocrit 33.4, WBC 11.1, currently trending down. CT of the abdomen showing hiatal hernia, small bilateral pleural effusion, small periumbilical hernia with fat content, no bowel obstruction. CT chest large hiatal hernia, small bilateral pleural effusion. Surgical input noted and appreciated, diet has been advanced. Plan for outpatient hiatal hernia repair. 08/13 patient blood pressure 166/85, rest of vital signs are unremarkable. Leukocytosis improving, WBC today 11.1, hemoglobin 11.1, hematocrit 33.4, platelet count of 182. Potassium 3.6. Results of urine culture reviewed, positive for E coli, sensitive to multiple antibiotics, but resistant to ciprofloxacin. We will give potassium chloride 40 mEq p.o., change Zosyn IV to Rocephin 1 g IV daily, continue to follow up PT input and recommendation. Follow repeat CBC today, stable patient to be discharged home today. She denies melena, no hematochezia, no hematemesis, no hematuria. 08/14 patient downgraded from the PCU to the medical floor, hemodynamically stable with a BP 145/80, afebrile, saturating normal on room air. Hemoglobin today 10.9, hematocrit 32.7, leukocytosis resolved. Potassium level 3.1, magnesium 1.5. Stool occult blood is negative. Iron level at 44, patient is started on Venofer 200 mg IV daily for three days. We will give potassium chloride 40 mEq p.o. x1 and 20 mEq IV x1 as well as magnesium sulfate 2 g IV x1. Follow repeat CBC, CMP and magnesium level after replacement. REPEAT POTASSIUM AND MAGNESIUM LEVEL WITH A NOTED NORMAL RANGE, HEMOGLOBIN AND HEMATOCRIT STABLE, NO SIGNS OF ACTIVE BLEEDING, PATIENT TO BE DISCHARGED HOME TODAY. PER MY DISCUSSION WITH HER SHE ALREADY TAKES IRON AT HOME. PATIENT RECEIVED TWO DOSES OF VENOFER, TOLERATED WELL. REVIEW OF SYSTEMS 12 point ROS negative unless noted in HPI PHYSICAL EXAM GENERAL APPEARANCE: The patient is awake, alert, and oriented, in no acute cardiopulmonary distress. NEUROLOGICAL: Cranial nerves II-XII grossly intact. Motor is 5/5 in bilateral upper and lower extremities proximal to distal. No sensory deficits. HEENT: Face is symmetric. Pupils are equal and reactive. Extraocular movements are intact. NECK: Supple. No JVD. No thyromegaly. No submental, submandibular, pre- /postauricular, occipital or supraclavicular lymphadenopathy. CHEST: Normal chest expansion. No Telemetry. LUNGS: Absence of any rales, rhonchi or any wheezing. CARDIOVASCULAR: Regular. S1 and S2 normal. No appreciable rubs, murmurs or gallops. ABDOMEN: Soft, nontender, and nondistended. There is no rebound, voluntary guarding, or rigidity. : Deferred. No Zuluaga. EXTREMITIES: Non-edematous and not cyanotic. No clubbing. Good capillary refill. SKIN: No skin breakdown. Vital Signs (last 8hr) Date Time Temp Pulse Resp B/P (MAP) Pulse Ox O2 Delivery O2 Flow Rate FiO2 08/14/24 08:01 97.9 80 18 145/80 95 Room Air 08/14/24 04:00 97.7 78 17 131/47 95 Room Air LABS: Laboratory: Test 08/14/24 04:12 08/13/24 13:44 08/13/24 12:18 Range/Units White Blood Count 10.1 4.8-10.8 K/uL Red Blood Count 3.62 L 4.00-5.50 MIL/uL Hemoglobin 10.9 L 12.0-16.0 g/dL Hematocrit 32.7 L 36-48 % Mean Corpuscular Volume 90.3 79-99 fL Mean Corpuscular Hemoglobin 30.1 27.0-33.0 pg Mean Corpuscular Hemoglobin Concent 33.3 32.0-36.0 g/dL Red Cell Distribution Width 13.2 11.0-15.5 % Platelet Count 235 130-400 K/uL Mean Platelet Volume 9.5 7.5-10.5 fL Nucleated Red Blood Cells 0.0 0.0-0.19 % Sodium Level 137 136-145 mmol/L Potassium Level 3.1 L 3.5-5.1 mmol/L Chloride Level 102 101-111 mmol/L Carbon Dioxide Level 28 21-32 mmol/L Blood Urea Nitrogen 8 7-18 mg/dL Creatinine 0.6 0.5-1.0 mg/dL Glomerular Filtration Rate Calc 99 >90 mL/min Random Glucose 97 70-105 mg/dL Total Calcium 8.4 L 8.5-10.1 mg/dL Magnesium Level 1.50 L 1.80-2.40 mg/dL Total Bilirubin 0.6 0.2-1.0 mg/dL Aspartate Amino Transf (AST/SGOT) 22 10-37 U/L Alanine Aminotransferase (ALT/SGPT) 23 12-78 U/L Alkaline Phosphatase 57 50-136 U/L Total Protein 5.9 L 6.0-8.3 g/dL Albumin 2.3 L 3.5-5.0 g/dL Stool Occult Blood NEGATIVE NEGATIVE Immature Granulocyte % (Auto) 3.5 H 0-1 % Neutrophils (%) (Auto) 73.3 40.0-77.0 % Lymphocytes (%) (Auto) 12.9 L 21.0-51.0 % Monocytes (%) (Auto) 8.0 3.0-13.0 % Eosinophils (%) (Auto) 1.8 0.0-8.0 % Basophils (%) (Auto) 0.5 0.0-5.0 % Neutrophils # (Auto) 8.0 H 1.8-7.7 K/uL Lymphocytes # (Auto) 1.4 1.0-4.8 K/uL Monocytes # (Auto) 0.9 0.1-1.0 K/uL Eosinophils # (Auto) 0.20 0.00-0.70 K/uL Basophils # (Auto) 0.05 0.00-0.20 K/uL Absolute Immature Granulocyte (auto 0.38 0-1 K/uL Iron Level 44 L 50-170 mcg/dL Total Iron Binding Capacity 195 L 250-450 mcg/dL Percent Iron Saturation 22.5 22-44 % Current Medications Medications (Trade) Dose Ordered Sig/Jie Route PRN Reason Start Time Stop Time Status Last Admin Dose Admin Albuterol (DUOneb) 1 udvial [id number] IH 08/09/24 02:00 08/09/24 06:43 DC 08/09/24 06:37 1 UDVIAL Albuterol (DUOneb) 1 udvial [id number] PRN IH SHORTNESS OF BREATH 08/09/24 07:00 09/08/24 01:59 Aspirin (Aspirin 81mg Ec Tab) 81 mg DAILY PO 08/09/24 09:00 09/08/24 08:59 08/14/24 08:25 81 MG Atorvastatin Calcium (LIPItor 20MG) 20 mg HS PO 08/14/24 21:00 09/13/24 20:59 Enoxaparin Sodium (Lovenox) 30 mg DAILY SQ 08/09/24 09:00 08/08/24 23:29 DC Iron Sucrose (VenoFER) 200 mg DAILY IV 08/14/24 09:00 08/16/24 09:00 08/14/24 08:25 200 MG Labetalol HCl (TRANdate 20MG SYG) 10 mg Q6H PRN IV IF SBP GREATER THAN 160 08/10/24 09:00 08/10/24 19:04 DC 08/10/24 17:32 10 MG Magnesium Sulfate 50 ml @ 0 mls/hr PROTOCOL PRN IV OTHER [SEE ORDER COMMENTS] 08/08/24 23:00 09/07/24 22:59 08/14/24 08:36 25 MLS/HR Metoprolol Succinate (TopROL XL) 50 mg DAILY PO 08/15/24 09:00 09/14/24 08:59 Metoprolol Tartrate (loprESSOR) 5 mg Q4H PRN IV ADMINISTER FOR SBP > 160 08/10/24 19:30 09/09/24 19:29 08/12/24 09:16 5 MG Ondansetron HCl (zoFRAN 4MG TABLET) 4 mg Q8H PRN PO nausea/vomiting 08/14/24 09:30 09/13/24 09:29 Ondansetron HCl (zoFRAN 4MG INJ) 4 mg Q6H PRN IV NAUSEA/VOMITING 08/08/24 23:00 08/14/24 09:15 DC Pantoprazole Sodium (PROTonix 40MG INJ) 40 mg DAILY IVP 08/09/24 09:00 09/08/24 08:59 08/14/24 08:25 40 MG Piperacillin Sod/ Tazobactam Sod 50 ml @ 12.5 mls/hr Q8H IV 08/09/24 03:00 08/19/24 02:59 08/14/24 02:58 12.5 MLS/HR Potassium Chloride 100 ml @ 50 mls/hr AD PRN IV POTASSIUM PROTOCOL 08/08/24 23:00 09/07/24 22:59 08/12/24 05:04 50 MLS/HR Potassium Chloride 100 ml @ 100 mls/hr AD PRN IV POTASSIUM PROTOCOL 08/09/24 07:00 09/08/24 06:59 08/09/24 23:41 100 MLS/HR Potassium Chloride (K-Dur/Klor-Con 20meq) 20 meq AD PRN PO POTASSIUM PROTOCOL 08/14/24 09:00 09/13/24 08:59 Potassium Chloride (KCl 10% Elixir 20meq/15ml) 20 meq AD PRN PO POTASSIUM PROTOCOL 08/14/24 09:00 09/13/24 08:59 Sodium Chloride 1,000 ml @ 125 mls/hr Q8H IV 08/10/24 06:00 08/12/24 15:58 DC 08/12/24 05:04 125 MLS/HR Sodium Chloride 1,000 ml @ 150 mls/hr Q6H40M IV 08/08/24 23:00 08/10/24 05:40 DC 08/09/24 05:46 150 MLS/HR DIAGNOSTICS / RADIOLOGY: [ ] ASSESSMENT: Gastric outlet obstruction/bowel obstruction, [place] Hiatal hernia, POA Intractable nausea and vomiting POA Severe dehydration POA Acute kidney injury Elevated troponin R/O NSTEMI POA Uncontrolled diabetes POA Metabolic alkalosis POA Hypokalemia POA Sepsis due to UTI POA Acute urinary tract infection POA Large hiatal per CT POA PLAN: Patient downgraded from the PCU to the medical floor hemodynamically stable with a BP 145/80, afebrile, saturating normal on room air. Hemoglobin today 10.9, hematocrit 32.7, leukocytosis resolved. Potassium level 3.1, magnesium 1.5. Stool occult blood is negative. Iron level at 44, patient is started on Venofer 200 mg IV daily for three days. We will give potassium chloride 40 mEq p.o. x1 and 20 mEq IV x1 as well as magnesium sulfate 2 g IV x1. Follow repeat CBC, CMP and magnesium level after replacement. NEURO: Minimize central acting medications as possible. Fall Precautions. Well lighted room through the day and minimize interruptions through the night to prevent acute delirium. PULMONARY: Supplemental 02 as needed BiPAP as necessary, for respiratory distress Titrate Fio2 to keep Spo2 > or = 90% DuoNebs and CPT as needed IS hourly while awake for pulmonary hygiene prn Out of bed to chair as tolerated Maintain aspiration precautions at all times CARDIOVASCULAR: Follow hemodynamics. Vital signs per facility protocol GI & NUTRITION: Continue nutritional support Aspirations precautions Prokinetic agents and laxatives as needed KIDNEYS & ELECTROLYTES: Strict monitoring of intake and output Daily weights Avoid nephrotoxic agents Monitor electrolytes and replace as needed Goal urine output of 30mL/hr or 0.5mL/kg/hr Medications to be dosed according to renal function. Avoid contrast if possible ENDOCRINE: Maintain blood glucose between 100-180 at all times. Insulin sliding scale for blood glucose management Hypoglycemia and hyperglycemia protocol in place INFECTIOUS DISEASE: Trend temperature, WBC and procalcitonin level Follow cultures, deescalate antibiotics as soon as possible. Panculture if new onset fever HEMATOLOGY & COAGULATION: Monitor H&H. Keep Hgb > 7 Transfuse 1 unit of PRBC for Hgb < 7 Transfuse 1 pack of platelets of platelets < 20, 000 Watch for any signs and symptoms of bleeding SKIN: Pressure ulcer prevention per facility protocol Specialty mattress as needed ORTHO/REHAB Continue PT/OT PRN: MEDICATIONS Tylenol 650 mg po every 4 hrs for fever zofran 4 mg IV every 6 hrs for n/v Hydralazine 5 mg IV every 4 hrs systolic pressure > 160 bowel regiment: lactulose 20 gm PO BID PRN constipation Supportive measures: Continue GI and DVT prophylaxis Disposition: Pending Improvement in clinical condition All questions answered time spent: > 35 min GLORY YBARRA MD Aug 14, 2024 10:03
[2024-08-14] MEDS: PoTASSium chloRIDE 20MEQ ER 20 MEQ ERTAB PO ONE (10:24)
[2024-08-14] MEDS ORDERED: MAGNESIUM 2GM PREMIX 50ML 50 ML IV SCH (10:30)
[2024-08-14] MEDS ORDERED: PoTASSium chloRIDE 20MEQ/100ML 100 ML IV ONE (10:30)
[2024-08-14] MEDS: PoTASSium chloRIDE 20MEQ ER 20 MEQ ERTAB PO PRN (11:38)
[2024-08-14 13:21] LABS: HEMATOCRIT 35.7 % (36-48); MEAN CORPUSCULAR HEMOGLOBIN 30.2 pg (27.0-33.0); MEAN CORPUSCULAR HGB CONC 32.8 g/dL (32.0-36.0); RED BLOOD CELL COUNT(AUTO) 3.88 MIL/uL (4.00-5.50); RED CELL DISTRIBUTION WIDTH 13.5 % (11.0-15.5); WHITE BLOOD COUNT (AUTO) 10.3 K/uL (4.8-10.8)
[2024-08-14 13:41] LABS: ALBUMIN 2.5 g/dL (3.5-5.0); BILIRUBIN,TOTAL 0.5 mg/dL (0.2-1.0); CREATININE 0.7 mg/dL (0.5-1.0); MAGNESIUM 2.3 mg/dL (1.80-2.40); POTASSIUM 3.7 mmol/L (3.5-5.1); TOTAL PROTEIN, SERUM 6.7 g/dL (6.0-8.3)
--- NOTE | 2024-08-14 14:05 | DS ---
Discharge Summary Hospital Course Summary: This is a 64-year-old female past medical history of osteoarthritis, hypertension and hyperlipidemia who presented to the ED for complaints of nausea, vomiting and diarrhea which started two days prior to presented to the emergency room. Patient stated she had a hamburger,namibian fries and ice cream from [employer] on Monday night and few hours after she started having nausea and vomiting every 2 hrs and 2 episode of diarrhea every day. Patient stated she was unable to keep anything down and her diarrhea stopped however her nausea and vomiting continued and she was vomiting dark colored bile she said. Upon arrival to ER vital signs temperature a 100, pulse 115, blood pressure 118/78 saturation 92% room air Latest Vital signs : Temperature 98.4, heart rate 105, blood pressure 121/65 saturation 94% on 2 L nasal cannula. Labs WBC 22.6 with negative left shift of neutrophils 86, hemoglobin 16, hematocrit 48.9 platelet count 331. Sodium 142, potassium 3.4, chloride 88, CO2 43, BUN 34, creatinine 2.2 GFR 24 glucose 178, lactic acid 3.4 Calcium 10 lactic acid 3.4, AST 41. Troponin 1190 to 967. Total protein 9.8. Influenza type a and B negative SARs COVID negative. Chest x-ray result revealed no acute pulmonary infiltrate is seen. Large hiatal hernia. CT abdomen and pelvis without contrast result revealed large hiatal hernia. Gastric distention. While in the ER patient received Solu-Medrol 125 mg IV, albuterol, Zofran 4 mg IV 1 L NS bolus, Zosyn IV. Patient admitted for further evaluation and medical management. 08/09 patient seen at bedside, no acute events overnight. She continues with nausea, imaging reviewed once again showing a large distended stomach full of f luid and a recognizable hiatal hernia. The pylorus and 1st part of the duodenum are in the thoracic cavity and the duodenum passes through the hiatal hernia into the abdominal cavity. This narrowing along with they distended stomach seems to be causing a gastric outlet obstruction, NG tube will be inserted and patient will be decompressed. General surgery will be consulted for further recommendations. Patient has slow up trend of troponins, she is NPO and can not take normal ACS medications, we will give a rectal suppository of aspirin. Further recommendations per Cardiology 08/10 patient seen at bedside, no acute events overnight. NG tube output proximally 1600 cc, patient states she is feeling slightly better. She continues on IV fluids, General surgery recommended conservative management we will continue decompression and IV fluids. Further recommendations per General surgery. She has been hypertensive, we will start p.r.n. hydralazine and labetalol as she can not take p.o. medications. WBC improved from 21.4 down to 19.6, potassium improved from 2.5 up to 3.5, remainder of her labs are relatively unremarkable. 08/11 patient seen at bedside, no acute events overnight. General surgery recommending CT of the abdomen with oral contrast today to see if contrast goes through. NG tube will be clamped prior to the procedure so that contrast as a chance to go through. 08/12 blood pressure 174/77, afebrile, saturating 93-95% on room air. Hemoglobin 11.1, hematocrit 33.4, WBC 11.1, currently trending down. CT of the abdomen showing hiatal hernia, small bilateral pleural effusion, small periumbilical hernia with fat content, no bowel obstruction. CT chest large hiatal hernia, small bilateral pleural effusion. Surgical input noted and appreciated, diet has been advanced. Plan for outpatient hiatal hernia repair. 08/13 patient blood pressure 166/85, rest of vital signs are unremarkable. Leukocytosis improving, WBC today 11.1, hemoglobin 11.1, hematocrit 33.4, platelet count of 182. Potassium 3.6. Results of urine culture reviewed, positive for E coli, sensitive to multiple antibiotics, but resistant to ciprofloxacin. We will give potassium chloride 40 mEq p.o., change Zosyn IV to Rocephin 1 g IV daily, continue to follow up PT input and recommendation. Fo llow repeat CBC today, stable patient to be discharged home today. She denies melena, no hematochezia, no hematemesis, no hematuria. 08/14 patient downgraded from the PCU to the medical floor, hemodynamically stable with a BP 145/80, afebrile, saturating normal on room air. Hemoglobin today 10.9, hematocrit 32.7, leukocytosis resolved. Potassium level 3.1, magnesium 1.5. Stool occult blood is negative. Iron level at 44, patient is started on Venofer 200 mg IV daily for three days. We will give potassium chloride 40 mEq p.o. x1 and 20 mEq IV x1 as well as magnesium sulfate 2 g IV x1. Follow repeat CBC, CMP and magnesium level after replacement. Repeat potassium and magnesium level as well as hemoglobin and hematocrit are stable, patient received two do ses of Venofer IV, tolerated well, patient to be discharged home today. PHYSICAL EXAM GENERAL APPEARANCE: The patient is awake, alert, and oriented, in no acute cardiopulmonary distress. NEUROLOGICAL: Cranial nerves II-XII grossly intact. Motor is 5/5 in bilateral upper and lower extremities proximal to distal. No sensory deficits. HEENT: Face is symmetric. Pupils are equal and reactive. Extraocular movements are intact. NECK: Supple. No JVD. No thyromegaly. No submental, submandibular, pre- /postauricular, occipital or supraclavicular lymphadenopathy. CHEST: Normal chest expansion. No Telemetry. LUNGS: Absence of any rales, rhonchi or any wheezing. CARDIOVASCULAR: Regular. S1 and S2 normal. No appreciable rubs, murmurs or gallops. ABDOMEN: Soft, nontender, and nondistended. There is no rebound, voluntary guarding, or rigidity. : Deferred. No Zuluaga. EXTREMITIES: Non-edematous and not cyanotic. No clubbing. Good capillary refill. SKIN: No skin breakdown. Assessment/Plan: Final diagnosis Gastric outlet obstruction/bowel obstruction, ruled out Possible gastroenteritis, POA Large Hiatal hernia, POA Intractable nausea and vomiting resolved POA Severe dehydration POA Acute kidney injury Elevated troponin type 2 demand ischemia, non-STEMI ruled out Uncontrolled diabetes POA Metabolic alkalosis POA Hypokalemia POA Sepsis due to UTI POA Acute urinary tract infection POA Discharge Instructions: Patient to follow up with her PCP as an outpatient and to return to the hospital for condition changes. The patient agreed with plan and understood the information provided. Home Medications: Reported Medications Rosuvastatin Calcium (Rosuvastatin Calcium) 10 Mg Tablet, 1 TAB PO HS for 30 Days, #30 TAB 0 Refills 08/08/24 Metoprolol Succinate (Metoprolol Succinate) 50 Mg Tab.er.24h, 1 TAB PO DAILY for 30 Days, #30 TAB 0 Refills 08/08/24 Ondansetron HCl (Ondansetron HCl) 4 Mg Tablet, 1 TAB PO Q6HPRN PRN for nausea/vomiting, #10 TAB 0 Refills 5/29/25 Time spent arranging discharge: 31-60 minutes GLOYR YBARRA MD Aug 14, 2024 14:05
--- NOTE | 2024-08-14 16:05 | NUR ---
DISCHARGE PIV DC'D DISCHARGE INSTRUCTIONS GIVEN TO THE PATIENT PATIENT IS AWARE OF FOLLOW UP APPOINTMENTS PATIENT IS AWARE OF NEW PRESCRIPTION BEING SENT TO PHARMACY ALL QUESTIONS ANSWERED PRIOR TO DISCHARGE
[2024-08-14] MEDS ORDERED: atorVAStatin 20 MG TABLET PO SCH (21:00)
[2024-08-15] MEDS ORDERED: metOPROLol sucCINATE 50 MG TAB.SR.24H PO SCH (09:00)
== END 2024-08-14 16:05 | disposition home or self-care (01) | DRG 871 ==
LOC: EDH 18:25 → EDHIP 22:48 → 2AH 08-09 00:12 → 3AH 08-13 22:25
PROVIDERS: ADMIT Internal Medicine; ATTEND Internal Medicine
PROC: 0D9670Z Drainage of Stomach with Drainage Device, Via Natural or Artificial Opening (ICD-10-PCS; principal; 2024-08-09)
DX: A41.9 Sepsis, unspecified organism (principal); J96.01 Acute respiratory failure with hypoxia; N17.0 Acute kidney failure with tubular necrosis; N39.0 Urinary tract infection, site not specified; E87.4 Mixed disorder of acid-base balance; K31.1 Adult hypertrophic pyloric stenosis; I24.89 Other forms of acute ischemic heart disease; K52.9 Noninfective gastroenteritis and colitis, unspecified; E11.65 Type 2 diabetes mellitus with hyperglycemia; E78.00 Pure hypercholesterolemia, unspecified; E86.0 Dehydration; Z20.822 Contact with and (suspected) exposure to COVID-19; E87.6 Hypokalemia; I10 Essential (primary) hypertension; K44.9 Diaphragmatic hernia without obstruction or gangrene; A08.4 Viral intestinal infection, unspecified; Z87.442 Personal history of urinary calculi; Z79.82 Long term (current) use of aspirin; Z79.899 Other long term (current) drug therapy; Z79.84 Long term (current) use of oral hypoglycemic drugs
CPT/HCPCS: 36415; 36600; 71045; 71250; 74176; 80048; 80053; 80076; 80305; 81001; 82270; 82550; 82803; 82948; 83036; 83540; 83550; 83605; 83690; 83735; 84100; 84132; 84145; 84443; 84484; 85025; 85027; 85651; 87040; 87086; 87186; 87635; 87804; 93005; 93306; 93356; 94640; 94664; 96361; 96372; 96374; 96375; 99291; G0378; J1650; J1756; J2405; J2470; J2543; J2550; J2919; J3475; J3480; J3490; Q9963